=== PATIENT | female | born 1955 | race Caucasian/White ===

== ENCOUNTER 2019-04-28 13:55 | Observation (INO) ==
--- NOTE | 2019-04-28 14:16 | Emergency Department Note ---
ED Disposition Clinical Impression: Panniculitis, Morbid obesity Disposition: Admitted as Observation Condition on Discharge: Fair Referrals: Provider,Referral, [Primary Care Provider] - Time of Disposition: 17:26 - Critical Care Critical Care Time: No Attestation: On 04/28/19, the high probability of a clinically significant, sudden or life threatening deterioration of the following system(s) required my full and direct attention, intervention and personal management. The time I documented below is in addition to time spent performing reported procedures but includes the following listed in this critical care notation. Medical Decision Making - Medical Records Medical records reviewed: Yes: I reviewed the patient's medical records. - Mehdi Inquiry Pt receiving controlled substance: No Mehdi was queried for this patient: No Vital Signs: 04/28/19 14:13 04/28/19 14:46 04/28/19 16:14 Temperature 98.2 F Temperature Source Oral Pulse Rate [Left Radial] 71 70 71 Respiratory Rate 20 Blood Pressure [Right Arm] 154/86 H 94/36 L 148/65 H Blood Pressure Mean [Right Arm] 108 55 92 Blood Pressure Source [Right Arm] Automatic Cuff Automatic Cuff Blood Pressure Position [Right Arm] Sitting Sitting Supine 02 Sat by Pulse Oximetry 94 L 96 93 L Oxygen Delivery Method Room Air Room Air Room Air - Lab Data Lab results reviewed: Yes: I reviewed the patient's lab results. Lab Results 04/28/19 14:11: WBC 7.2, RBC 4.26, Hgb 9.0 L, Hct 32.4 L, MCV 76.2 L, MCH 21.2 L , MCHC 27.8 L, RDW 19.5 H, Plt Count 186, MPV 8.1, Neut % (Auto) 82.5 H, Lymph % (Auto) 9.8 L, [place] % (Auto) 6.2, Eos % (Auto) 1.2, Baso % (Auto) 0.3, Neut # (Auto) 6.0, Lymph # (Auto) 0.7, [place] # (Auto) 0.4, Eos # (Auto) 0.1, Baso # (Auto) 0.0 04/28/19 14:11: Sodium 144, Potassium 3.4 L, Chloride 107, Carbon Dioxide 27, Anion Gap 13.4, BUN 8, Creatinine 0.76, Estimated Creat Clear 44, Estimated GFR 76, Est GFR ( Amer) 92, Glucose 105, Calcium 8.5, Total Bilirubin 0.9, AST 19, ALT 13, Alkaline Phosphatase 73, Total Protein 7.1, Albumin 3.1 L, Gl obulin 4.0 H, Albumin/Globulin Ratio 0.8 L 04/28/19 14:11: Lactate 0.9 04/28/19 14:39: Urine Color Yellow, Urine Appearance Clear, Urine pH 6.0, Ur Specific [place] >= 1.030, Urine Protein Negative, Urine Glucose (UA) Negative, Urine Ketones 2+, Urine Blood Negative, Urine Nitrate Positive, Urine Bilirubin Negative, Urine Urobilinogen 1.0, Ur Leukocyte Esterase Negative, Urine WBC Occasional, Ur Squamous Epith Cells Occasional, Urine Bacteria 2+ Result diagrams: 04/28/19 14:11 04/28/19 14:11 Orders (Tests/Meds): ED MEDICATIONS Generic Name Dose Route Start Last Admin Trade Name Freq PRN Reason Stop Dose Admin Sodium Chloride 1,000 mls @ 500 mls/hr 04/28/19 14:30 04/28/19 16:08 Sod Chlor 0.9% 1000ml Bag IV 05/28/19 14:29 500 mls/hr .Q2H ENIO Administration Discontinued Medications Generic Name Dose Route Start Last Admin Trade Name Freq PRN Reason Stop Dose Admin Ketorolac Tromethamine 30 mg 04/28/19 15:02 04/28/19 15:06 Toradol 30mg/Ml Vial IV 04/28/19 15:03 30 mg ONCE ONE Administration Morphine Sulfate 4 mg 04/28/19 14:58 Morphine 4mg/Ml Syringe IV 04/28/19 14:59 ONCE ONE ORDERS Category Date Time Status Blood Culture Stat Micro 04/28/19 14:11 Received Urine Culture Stat Micro 04/28/19 14:39 Received - Physician Consults Physician Consulted: fran Time: 16:43 Reason -: Admission General Adult HPI - General Chief complaint: Weakness Stated complaint: Weakness Time Seen by Provider: 04/28/19 14:13 Mode of Arrival: EMS Source of Information: Patient Limitations: Physical Limitations (obesity) - History of Present Illness HPI narrative: brought in by caregivers for weakness, inability to ambulate, urinary incontinence with foul smelling urine. Has a nurse practicioner who visits her at her home. - Related Data Home Medications Medication Instructions Recorded Confirmed Gabapentin 800 mg PO DAILY 04/28/19 04/28/19 Omeprazole 20 mg PO DAILY 04/28/19 04/28/19 Oxycodone HCl [OxyIR 5mg tablet] 5 mg PO Q4H 04/28/19 04/28/19 Quetiapine Fumarate 50 mg PO DAILY 04/28/19 04/28/19 Ropinirole HCl 4 mg PO DAILY 04/28/19 04/28/19 Simvastatin 10 mg PO DAILY 04/28/19 04/28/19 Tizanidine HCl 2 mg PO DAILY 04/28/19 04/28/19 Venlafaxine HCl [Venlafaxine HCl 150 mg PO DAILY 04/28/19 04/28/19 ER] Allergies Allergy/AdvReac Type Severity Reaction Status Date / Time ASA (ASPIRIN) Allergy Unknown Uncoded 07/03/17 15:22 [facility] History - Hepatitis A Screen Attestation statement:: This patient has been screened for Hepatitis A risk factors. I have reviewed the patient's past medical history: Yes ROS Obtained: Yes All systems reviewed & no additional complaints - Constitutional Constitutional: Denies lethargy, Denies weakness - Cardiovascular Cardiovascular: Denies chest pain - Respiratory Respiratory: No chest congestion, No cough, No dyspnea, No dyspnea on exertion - Gastrointestinal Gastrointestingal: Reports: nausea. Denies: abdominal pain, diarrhea, vomiting - Genitourinary Female Genitourinary: Reports other (foul smelling urine) - Musculoskeletal Musculoskeletal: Reports limited range of motion, Reports muscle aches - Integumentary/Breasts Skin/Breast: Reports rash, Reports other (under breasts) - Neurologic Neurologic: Denies syncope, Denies vertigo, Reports weakness - Hematologic/Lymphatic Henatologic/Lymphatic: Denies easy bleeding, Denies easy bruising Physical Exam - General General appearance: alert, obese - Head Head exam: atraumatic - Eye Eye exam: Present: normal appearance, PERRL, EOMI - ENT ENT exam: Present: normal exam, normal oropharynx, mucous membranes moist, TM's normal bilaterally, normal external ear exam - Neck Neck exam: Present: normal inspection - Respiratory Respiratory exam: Present: normal lung sounds bilaterally. Absent: respiratory distress - Cardiovascular Cardiovascular exam: Present: regular rate, normal rhythm - Abdominal Exam Abdominal exam: Present: soft, hernia, other (.pannus is reddened in pelvic area with palpable induration on left. painful. cellulitic). Absent: distention, tenderness, guarding - Extremities Exam Extremities exam: Present: normal inspection, full ROM, normal capillary refill. Absent: calf tenderness - Back Exam Back exam: Present: normal inspection. Absent: tenderness - Neurological Exam Neurological exam: Present: alert, oriented X3 - Psychiatric Psychiatric exam: Present: normal affect, normal mood - Skin Skin exam: Present: warm, rash
[2019-04-28 14:37] LABS: Basophils % 0.3 % (0.1-2.0); Eosinophils # 0.1 K/mm3 (0.0-0.4); Eosinophils % 1.2 % (0.1-12.0); Hematocrit 32.4 % (37.0-47.0); Lymphocytes # 0.7 K/mm3 (0.7-4.5); Lymphocytes % 9.8 % (10-50); Mean Corpuscular HGB Conc 27.8 g/dL (31.8-35.4); Mean Corpuscular Volume 76.2 fl (81-99); Mean Platelet Volume 8.1 fl (7.4-10.4); Monocytes # 0.4 K/mm3 (0.1-1.0); Monocytes % 6.2 % (1.7-9.3); Neutrophils % 82.5 % (37.0-80.0); Platelet Count 186 K/mm3 (142-424); Red Blood Count 4.26 M/mm3 (4.20-5.40); Red Cell Distribution Width 19.5 % (11.5-17.5); White Blood Count 7.2 K/mm3 (4.8-10.8)
[2019-04-28 14:38] LABS: Albumin Level 3.1 gm/dL (3.4-5.0); Albumin/Globulin Ratio 0.8 (1.1-1.8); Anion Gap 13.4 mEq/L (5-15); Bilirubin,Total 0.9 mg/dL (0.2-1.0); Calcium 8.5 mg/dL (8.5-10.1); Total Protein,Serum 7.1 gm/dL (6.4-8.2)
[2019-04-28 14:46] LABS: Microscopic, Urine URINE MICROSCOPIC (MICROSCOPIC)
[2019-04-28 14:49] LABS: Appearance,Urine CLEAR (Clear); Blood, Urine Negative (Negative); Color,Urine YELLOW (Yellow); Glucose,Urine (UA) Negative (Negative); Ketones,Urine 2+ (Negative); Leukocyte Esterase,Urine Negative (Negative); Protein,Urine Negative (Negative); Specific Gravity, Urine >= 1.030 (1.005-1.030)
[2019-04-28 14:57] LABS: Bilirubin,Urine Negative (Negative)
[2019-04-28 15:01] LABS: Bacteria,Urine 2+ /lpf; Squamous Epithelial Cell,Urine Occasional #/hpf (0-5); WBC,Urine Occasional #/hpf (0-3)
[2019-04-29 07:25] LABS: Basophils % 0.2 % (0.1-2.0); Eosinophils # 0.1 K/mm3 (0.0-0.4); Eosinophils % 1.6 % (0.1-12.0); Hematocrit 32.1 % (37.0-47.0); Hemoglobin 9.1 g/dL (12.2-16.2); Lymphocytes # 0.3 K/mm3 (0.7-4.5); Lymphocytes % 2.9 % (10-50); Mean Corpuscular HGB Conc 28.2 g/dL (31.8-35.4); Mean Corpuscular Volume 77.9 fl (81-99); Monocytes # 0.4 K/mm3 (0.1-1.0); Monocytes % 4.4 % (1.7-9.3); Neutrophils # 8.1 K/mm3 (1.8-7.8); Neutrophils % 90.9 % (37.0-80.0); Platelet Count 161 K/mm3 (142-424); Red Blood Count 4.12 M/mm3 (4.20-5.40); Red Cell Distribution Width 19.3 % (11.5-17.5); White Blood Count 8.9 K/mm3 (4.8-10.8)
[2019-04-29 07:52] LABS: Anion Gap 11.6 mEq/L (5-15); Calcium 8.1 mg/dL (8.5-10.1)
--- NOTE | 2019-04-29 08:12 | Pharmacy Consult Notes ---
- Pharmacy Consult Date: 04/29/19 Time: 08:10 Referring provider: DR. BRAR Reason for Consult:: VANCOMYCIN DOSING Allergies and ADEs:: Allergies Allergy/AdvReac Type Severity Reaction Status Date / Time aspirin Allergy Severe Anaphylaxis Verified 04/29/19 07:58 Sulfa (Sulfonamide AdvReac Nausea Verified 04/28/19 23:14 Antibiotics) Home Medications:: Home Medications Medication Instructions Recorded Confirmed Type Gabapentin 800 mg PO DAILY 04/28/19 04/28/19 History Omeprazole 20 mg PO DAILY 04/28/19 04/28/19 History Oxycodone HCl [OxyIR 5mg tablet] 5 mg PO Q4H 04/28/19 04/28/19 History Quetiapine Fumarate 50 mg PO DAILY 04/28/19 04/28/19 History Ropinirole HCl 4 mg PO DAILY 04/28/19 04/28/19 History Simvastatin 10 mg PO DAILY 04/28/19 04/28/19 History Tizanidine HCl 2 mg PO DAILY 04/28/19 04/28/19 History Venlafaxine HCl [Venlafaxine HCl 150 mg PO DAILY 04/28/19 04/28/19 History ER] Height: 1.57 m Weight: 154.5 kg Laboratory Results:: Laboratory Results - last 24 hr 04/28/19 14:11: WBC 7.2, RBC 4.26, Hgb 9.0 L, Hct 32.4 L, MCV 76.2 L, MCH 21.2 L , MCHC 27.8 L, RDW 19.5 H, Plt Count 186, MPV 8.1, Neut % (Auto) 82.5 H, Lymph % (Auto) 9.8 L, [place] % (Auto) 6.2, Eos % (Auto) 1.2, Baso % (Auto) 0.3, Neut # (Auto) 6.0, Lymph # (Auto) 0.7, [place] # (Auto) 0.4, Eos # (Auto) 0.1, Baso # (Auto) 0.0 04/28/19 14:11: Sodium 144, Potassium 3.4 L, Chloride 107, Carbon Dioxide 27, Anion Gap 13.4, BUN 8, Creatinine 0.76, Estimated Creat Clear 44, Estimated GFR 76, Est GFR ( Amer) 92, Glucose 105, Calcium 8.5, Total Bilirubin 0.9, AST 19, ALT 13, Alkaline Phosphatase 73, Total Protein 7.1, Albumin 3.1 L, Globulin 4.0 H, Albumin/Globulin Ratio 0.8 L 04/28/19 14:11: Lactate 0.9 04/28/19 14:39: Urine Color Yellow, Urine Appearance Clear, Urine pH 6.0, Ur Specific [place] >= 1.030, Urine Protein Negative, Urine Glucose (UA) Negative, Urine Ketones 2+, Urine Blood Negative, Urine Nitrate Positive, Urine Bilirubin Negative, Urine Urobilinogen 1.0, Ur Leukocyte Esterase Negative, Urine WBC Occasional, Ur Squamous Epith Cells Occasional, Urine Bacteria 2+ 04/29/19 07:12: WBC 8.9, RBC 4.12 L, Hgb 9.1 L, Hct 32.1 L, MCV 77.9 L, MCH 22.0 L, MCHC 28.2 L, RDW 19.3 H, Plt Count 161, MPV 9.0, Neut % (Auto) 90.9 H, Lymph % (Auto) 2.9 L, [place] % (Auto) 4.4, Eos % (Auto) 1.6, Baso % (Auto) 0.2, Neut # (Auto) 8.1 H, Lymph # (Auto) 0.3 L, [place] # (Auto) 0.4, Eos # (Auto) 0.1, Baso # (Auto) 0.0 04/29/19 07:12: Sodium 144, Potassium 3.6, Chloride 109 H, Carbon Dioxide 27, Anion Gap 11.6, BUN 9, Creatinine 0.75, Estimated Creat Clear 44, Estimated GFR 78, Est GFR ( Amer) 94, Glucose 101, Calcium 8.1 L Medical History: Denies:: Diabetes Mellitus Type 1, Diabetes Mellitus Type 2 Assessment and Plan - Assessment and plan all Dx Assessment and Plan for all problems:: BASED ON PATIENT FACTORS, RECOMMEND VANCOMYCIN 2500 MG IV Q18H. WILL OBTAIN VANCOMYCIN TROUGH LEVEL PRIOR TO 3RD DOSE. PHARMACY WILL FOLLOW DAILY AND ADJUST APPROPRIATE.
--- NOTE | 2019-04-29 09:03 | History & Physical Report ---
*Admission Date: 04/28/19 *Chief complaint: fatigue, weakness *History of present illness: Ms. Sanchez is a morbidly obese 63-year-old female with history of failed gastric bypass surgery, knee replacement a year ago, pickwickian syndrome on BiPAP and oxygen at night, and worsening debility over the past year. She presented to the ER yesterday due to concern for worsening fatigue and inability to perform ADLs it is progressed for the past month. She denied any focal pain but complained of just weakness and fatigue. Falling asleep during the day which is abnormal for her even with her use of BiPAP. Work-up in the ER consisted of labs and abdominal CT. She was found to have anemia, suspected to be chronic, and significant haziness/stranding of fat within her pannus concerning for inflammation/infection. Additionally her urine was concerning for a UTI. She was admitted to medicine for further management of her acute and suspected chronic conditions. This morning she states she has had bad experiences at previous hospitals and requested to come to [facility]. She has been living at home with a home health aide who comes in daily to assist her with housework and care. This is been going on for over a year since having her knee replaced. She states she is normally able to ambulate around her home and do things such as laundry, dishes, cleaning but has not been able to do any of this for the past month and it progressed to the point that she was unable to even walk to the bathroom. She denies any fevers, chest pain, worsening shortness of breath at home. Does state however she is been falling asleep more easily and has had a change in her urine. Additionally reports that approximately a month ago she was diagnosed with a pneumonia and treated in the outpatient setting. This correlates to the onset of her worsening fatigue and debility. Eating breakfast on interview and appears comfortable. [facility] History I have reviewed the patient's past medical history: Yes Medical History: Denies:: Diabetes Mellitus Type 1, Diabetes Mellitus Type 2 *Have you ever received a pneumonia vaccine?: Yes *Have you received a flu vaccine this season?: No Other Medical History: Reports: Anemia Comment:: Sleep apnea Laterality Cases: Right: Total Knee Replacement (1 yr ago) Other Surgeries: Yes: Bariatric Surgery - *Social History Smoking Status: Never smoker Alcohol Intake: never Alcohol Intake Frequency:: other Substance Use Type: denies use *Occupational Status:: disabled *Travel in the last 8 weeks: None Family Hx:: Hyperlipidemia, Hypertension Review of Systems - Review of Systems Review of systems:: pertinent systems reviewed and negative unless documented below - *Neurologic Reports weakness, Denies fainting, Denies dizziness Meds Home Medications Medication Instructions Recorded Confirmed Type Gabapentin 800 mg PO TID 04/28/19 04/29/19 History Omeprazole 20 mg PO BID 04/28/19 04/29/19 History Oxycodone HCl [OxyIR 5mg tablet] 5 mg PO QID 04/28/19 04/29/19 History Quetiapine Fumarate 50 - 100 mg PO BID 04/28/19 04/29/19 History Ropinirole HCl 4 - 8 mg PO TID 04/28/19 04/29/19 History Simvastatin 10 mg PO HS 04/28/19 04/29/19 History Tizanidine HCl 2 mg PO HS 04/28/19 04/29/19 History Venlafaxine HCl [Venlafaxine HCl 150 mg PO BID 04/28/19 04/29/19 History ER] Allopurinol [Allopurinol 100mg 100 mg PO DAILY 04/29/19 04/29/19 History tablet] Atenolol [Atenolol 25mg Tab] 25 mg PO DAILY 04/29/19 04/29/19 History Bumetanide 1 mg PO DAILY 04/29/19 04/29/19 History Calcium Carbonate [Calcium] 600 mg PO DAILY 04/29/19 04/29/19 History Ergocalciferol (Vitamin D2) 50,000 unit PO WEEKLY 04/29/19 04/29/19 History [Vitamin D2] Potassium Chloride [Klor-Con M10] 10 meq PO TID 04/29/19 04/29/19 History Allergies Allergy/AdvReac Type Severity Reaction Status Date / Time aspirin Allergy Severe Anaphylaxis Verified 04/29/19 07:58 Sulfa (Sulfonamide AdvReac Nausea Verified 04/28/19 23:14 Antibiotics) Exam Vital signs and Labs for Last 24 Hours: Temp Pulse Resp BP Pulse Ox 98.8 F 78 18 144/61 H 98 04/29/19 04:00 04/29/19 04:00 04/29/19 04:00 04/29/19 04:00 04/29/19 04:00 Laboratory Results - last 24 hr 04/28/19 14:11: WBC 7.2, RBC 4.26, Hgb 9.0 L, Hct 32.4 L, MCV 76.2 L, MCH 21.2 L , MCHC 27.8 L, RDW 19.5 H, Plt Count 186, MPV 8.1, Neut % (Auto) 82.5 H, Lymph % (Auto) 9.8 L, [place] % (Auto) 6.2, Eos % (Auto) 1.2, Baso % (Auto) 0.3, Neut # (Auto) 6.0, Lymph # (Auto) 0.7, [place] # (Auto) 0.4, Eos # (Auto) 0.1, Baso # (Auto) 0.0 04/28/19 14:11: Sodium 144, Potassium 3.4 L, Chloride 107, Carbon Dioxide 27, Anion Gap 13.4, BUN 8, Creatinine 0.76, Estimated Creat Clear 44, Estimated GFR 76, Est GFR ( Amer) 92, Glucose 105, Calcium 8.5, Total Bilirubin 0.9, AST 19, ALT 13, Alkaline Phosphatase 73, Total Protein 7.1, Albumin 3.1 L, Globulin 4.0 H, Albumin/Globulin Ratio 0.8 L 04/28/19 14:11: Lactate 0.9 04/28/19 14:39: Urine Color Yellow, Urine Appearance Clear, Urine pH 6.0, Ur Specific [place] >= 1.030, Urine Protein Negative, Urine Glucose (UA) Negative, Urine Ketones 2+, Urine Blood Negative, Urine Nitrate Positive, Urine Bilirubin Negative, Urine Urobilinogen 1.0, Ur Leukocyte Esterase Negative, Urine WBC Occasional, Ur Squamous Epith Cells Occasional, Urine Bacteria 2+ 04/29/19 07:12: WBC 8.9, RBC 4.12 L, Hgb 9.1 L, Hct 32.1 L, MCV 77.9 L, MCH 22.0 L, MCHC 28.2 L, RDW 19.3 H, Plt Count 161, MPV 9.0, Neut % (Auto) 90.9 H, Lymph % (Auto) 2.9 L, [place] % (Auto) 4.4, Eos % (Auto) 1.6, Baso % (Auto) 0.2, Neut # (Auto) 8.1 H, Lymph # (Auto) 0.3 L, [place] # (Auto) 0.4, Eos # (Auto) 0.1, Baso # (Auto) 0.0 04/29/19 07:12: Sodium 144, Potassium 3.6, Chloride 109 H, Carbon Dioxide 27, Anion Gap 11.6, BUN 9, Creatinine 0.75, Estimated Creat Clear 44, Estimated GFR 78, Est GFR ( Amer) 94, Glucose 101, Calcium 8.1 L I & O for Last 24 hours: Intake & Output 04/26/19 04/27/19 04/28/19 04/29/19 23:59 23:59 23:59 23:59 Intake Total 1475 / 1475 Output Total 350 / 350 Balance 1125 / 1125 Weight 153.1 kg 154.5 kg Microbiology Reports for the Last 24 Hours: Microbiology 04/28/19 14:39 Urine,Catheterized Urine Culture - Preliminary - Constitutional mild distress, morbidly obese, chronically ill appearing - *Routine HEENT Exam Head: Present: normocephalic Eye: Present: EOMI, PERRL ENT: Present: mucous membranes moist - *Routine Neck Exam Present: supple. Absent: lymphadenopathy - *Routine Respiratory Exam Present: diminished air movement (worse at bases). Absent: wheezes - *Routine Cardiovascular Exam Present: RRR - *Routine Abdominal Exam Present: soft, normoactive bowel sounds. Absent: tenderness Comments: Extensive erythema within fold of pannus, additionally noted erythema under breasts bilaterally with satellite lesions. Yeasty smell within pannus fold, ointment on rash on abdomen - *Routine Extremities Exam Present: edema. Absent: cyanosis, clubbing Comments: Chronic venous stasis dermatitis bilaterally, dense edema that is nonpitting on bilateral lower legs with tenderness to palpation no warmth or bulla - *Routine Skin Exam Present: intact, warm, rash Comments: erythematous rash in skin folds with satellite lesions, no fluctuance or abscesses, chronic stasis dermatitis in BLE with dense edema to knees. 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 Absent: altered mental status Assessment and Plan (1) Chronic iron deficiency anemia Current visit: Yes Status: Chronic Category: Medical Code(s): D50.9 - Iron deficiency anemia, unspecified Suspect chronic due to microcytosis. Patient does state she has had some positive guaiac studies done but has not had a colonoscopy in many years. Denies any kim bleeding. Would benefit from work-up in the outpatient setting consisting of colonoscopy to look for underlying etiology. Suspect her worsening anemia underscore's her debility, fatigue, oxygen requirement. (2) Candidal dermatitis Current visit: Yes Status: Acute Category: Medical Code(s): B37.2 - Candidiasis of skin and nail Erythema of abdominal wall and folds under her breast and pannus concerning for yeast infection with possible superimposed bacterial infection. Initiated on Diflucan. Will complete 14-day course to help clear up lesions. Additionally will start nystatin cream topically. (3) Pickwickian syndrome Current visit: Yes Status: Acute Category: Medical Code(s): E66.2 - Morbid (severe) obesity with alveolar hypoventilation resume home BiPAP when brought to hospital by caregiver. O2 PRN for goal >92% awake and >88% asleep. (4) Debility Current visit: Yes Status: Acute Category: Medical Code(s): R53.81 - Other malaise (5) Morbid obesity Current visit: Yes Status: Chronic Category: Medical Code(s): E66.01 - Morbid (severe) obesity due to excess calories complicates all aspects of care (6) Panniculitis Current visit: Yes Status: Acute Category: Medical Code(s): M79.3 - Panniculitis, unspecified suspected due to stranding on CT, continue Abx and Antifungal. monitor for improvement. no surgical consult required at this time.
--- NOTE | 2019-04-29 09:42 | Pharmacy Consult Notes ---
[facility] Pharmacy VTE Monitoring - Patient Demographics Admission date: 04/28/19 Report Date: 04/29/19 Time: 09:42 Allergies/Adverse Reactions: Patient Allergies aspirin Allergy (Severe, Verified 04/29/19 07:58) Anaphylaxis Sulfa (Sulfonamide Antibiotics) Adverse Reaction (Verified 04/28/19 23:14) Nausea Height: 1.57 m Weight: 154.5 kg Patient Problems: Current Active Problems Panniculitis (Acute) Morbid obesity (Acute) - VTE Risk Labs: VTE Related Lab Results Hgb 9.1 g/dL (12.2-16.2) L 04/29/19 07:12 Hct 32.1 % (37.0-47.0) L 04/29/19 07:12 Plt Count 161 K/mm3 (142-424) 04/29/19 07:12 BUN 9 mg/dL (7-18) 04/29/19 07:12 Creatinine 0.75 mg/dL (0.55-1.02) 04/29/19 07:12 Estimated Creat Clear 44 mL/min (50-200) 04/29/19 07:12 Was VTE Risk Assessment Performed: Yes VTE Score: 10 VTE Risk Level: Moderate Risk - Prophylaxis VTE Prophylaxis Ordered?: Yes Types of VTE Prophylaxis: TEDS Knee High Location of Applied Device: Bilateral Lower Extremeties - VTE Diagnosis Confirmed Treatment or plan recommended: Continue Current Treatment
[2019-04-29 13:05] LABS: Hypochromasia 2+; Lymphocytes % 2 % (10-50); Monocytes % 1 % (2-9); Neutrophils % 97 % (42-76); Total Cells Counted 100
[2019-04-30 07:41] LABS: Basophils % 0.2 % (0.1-2.0); Eosinophils # 0.2 K/mm3 (0.0-0.4); Eosinophils % 1.7 % (0.1-12.0); Hematocrit 34.1 % (37.0-47.0); Hemoglobin 9.5 g/dL (12.2-16.2); Lymphocytes # 0.5 K/mm3 (0.7-4.5); Lymphocytes % 4.1 % (10-50); Mean Corpuscular HGB Conc 27.9 g/dL (31.8-35.4); Mean Corpuscular Volume 76.4 fl (81-99); Monocytes # 0.6 K/mm3 (0.1-1.0); Monocytes % 5.3 % (1.7-9.3); Neutrophils # 9.8 K/mm3 (1.8-7.8); Neutrophils % 88.8 % (37.0-80.0); Platelet Count 171 K/mm3 (142-424); Red Blood Count 4.46 M/mm3 (4.20-5.40); Red Cell Distribution Width 19.2 % (11.5-17.5); White Blood Count 11.1 K/mm3 (4.8-10.8)
[2019-04-30 07:49] LABS: Anion Gap 10.2 mEq/L (5-15); Calcium 8.1 mg/dL (8.5-10.1)
--- NOTE | 2019-04-30 11:38 | Progress Note ---
Internal Medicine - PN: Subj *Date: 04/30/19 *Time: 11:35 Interval history: Ms. Sanchez did well overnight. She wore her BiPAP with improvement in her sleep per her report. Continues to be very weak and unable to get up out of bed on her own. Physical therapy worked with her yesterday and is concerned that she needs 1-2 person assist based on her current debility. Remains afebrile. Hemodynamically stable. Tolerating good p.o. intake. Tolerating oral antifungal and antibiotic therapy. Patient continues to complain of back pain and sensitive skin in the regions of her intertrigo. Denies nausea, vomiting, diarrhea. Is requesting to keep her Shine as it makes it easier for her to void. Had extensive discussion this morning about the risk for UTI and complicating her care with the use of a Shine. Exam Vital signs and Labs for Last 24 Hours: Temp Pulse Resp BP Pulse Ox 98.6 F 92 H 18 167/79 H 93 L 04/30/19 08:00 04/30/19 08:00 04/30/19 08:00 04/30/19 08:00 04/30/19 08:00 Laboratory Results - last 24 hr 04/28/19 14:39: Urine Color Yellow, Urine Appearance Clear, Urine pH 6.0, Ur Specific [place] >= 1.030, Urine Protein Negative, Urine Glucose (UA) Negative, Urine Ketones 2+, Urine Blood Negative, Urine Nitrate Positive, Urine Bilirubin Negative, Urine Urobilinogen 1.0, Ur Leukocyte Esterase Negative, Urine WBC Occasional, Ur Squamous Epith Cells Occasional, Urine Bacteria 2+ 04/29/19 07:12: Total Counted 100, Neutrophils % (Manual) 97 H, Lymphocytes % (Manual) 2 L, Monocytes % (Manual) 1 L, Platelet Estimate Normal, Hypochromasia 2+, Microcytosis 2+ 04/30/19 07:20: WBC 11.1 H, RBC 4.46, Hgb 9.5 L, Hct 34.1 L, MCV 76.4 L, MCH 21.3 L, MCHC 27.9 L, RDW 19.2 H, Plt Count 171, MPV 8.0, Neut % (Auto) 88.8 H, Lymph % (Auto) 4.1 L, [place] % (Auto) 5.3, Eos % (Auto) 1.7, Baso % (Auto) 0.2, Neut # (Auto) 9.8 H, Lymph # (Auto) 0.5 L, [place] # (Auto) 0.6, Eos # (Auto) 0.2, Baso # (Auto) 0.0 04/30/19 07:20: Sodium 144, Potassium 3.2 L, Chloride 109 H, Carbon Dioxide 28, Anion Gap 10.2, BUN 8, Creatinine 0.77, Estimated Creat Clear 44, Estimated GFR 75, Est GFR ( Amer) 91, Glucose 117 H, Calcium 8.1 L I & O for Last 24 hours: Intake & Output 04/27/19 04/28/19 04/29/19 04/30/19 23:59 23:59 23:59 23:59 Intake Total 3323 / 3647 1473 / 1473 Output Total 2450 / 2450 1800 / 1800 Balance 873 / 1197 -327 / -327 Weight 153.1 kg 154.5 kg 154.5 kg Microbiology Reports for the Last 24 Hours: Microbiology 04/28/19 14:39 Urine,Catheterized Urine Culture - Preliminary Gram Negative Rods Gram Negative Rods#2 Narrative: - Constitutional No acute distress, morbidly obese, chronically ill appearing - *Routine HEENT Exam Head: Present: normocephalic Eye: Present: EOMI, PERRL ENT: Present: mucous membranes moist - *Routine Neck Exam Present: supple. Absent: lymphadenopathy - *Routine Respiratory Exam Present: diminished air movement (worse at bases). Absent: wheezes, crackles - *Routine Cardiovascular Exam Present: RRR - *Routine Abdominal Exam Present: soft, normoactive bowel sounds. Absent: tenderness Comments: Extensive erythema within fold of pannus, additionally noted erythema under breasts bilaterally with satellite lesions. warm, though interval improvement, ointment on rash on abdomen - *Routine Extremities Exam Present: edema. Absent: cyanosis, clubbing Comments: Chronic venous stasis dermatitis bilaterally, dense edema that is nonpitting on bilateral lower legs with tenderness to palpation no warmth or bulla - *Routine Skin Exam Present: intact, warm, rash Comments: erythematous rash in skin folds with satellite lesions, no fluctuance or abscesses, chronic stasis dermatitis in BLE with dense edema to knees. 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 Absent: altered mental status Assessment and Plan (1) Chronic iron deficiency anemia Current visit: Yes Status: Chronic Category: Medical Code(s): D50.9 - Iron deficiency anemia, unspecified (2) Candidal dermatitis Current visit: Yes Status: Acute Category: Medical Code(s): B37.2 - Candidiasis of skin and nail (3) Pickwickian syndrome Current visit: Yes Status: Acute Category: Medical Code(s): E66.2 - Morbid (severe) obesity with alveolar hypoventilation (4) Debility Current visit: Yes Status: Acute Category: Medical Code(s): R53.81 - Other malaise (5) Morbid obesity Current visit: Yes Status: Chronic Category: Medical Code(s): E66.01 - Morbid (severe) obesity due to excess calories (6) Panniculitis Current visit: Yes Status: Acute Category: Medical Code(s): M79.3 - Panniculitis, unspecified (7) Candidal intertrigo Current visit: Yes Status: Acute Category: Medical Code(s): B37.2 - Candidiasis of skin and nail - Assessment and plan all Dx Assessment and Plan for all problems:: 63-year-old female with severe debility, morbid obesity, candidal intertrigo. Clinically she is stable from yesterday. We will continue to have physical therapy see her while she is with us. At this time the patient is stable from an acute standpoint and on oral and topical therapy for her intertrigo. Do not feel patient is safe to go back home even in the setting of having a nurse aide for several hours a day 5 days a week. She does not currently have the strength to get herself up out of bed or chair and ambulate independently. Therapy is recommended placement for rehab, agree with this assessment as well as for wound care in my opinion. Will look into placement options for Ms. Sanchez. Continue inpatient therapy and current treatment course pending placement options. Stable for discharge once placement is found
[2019-04-30 12:03] LABS: Eosinophils % 2 % (0-3); Lymphocytes % 2 % (10-50); Monocytes % 6 % (2-9); Neutrophils % 90 % (42-76); Total Cells Counted 100
[2019-04-30 12:08] LABS: Anisocytosis 1+; Tear Drop Cells 1+
[2019-04-30 12:09] LABS: Hypochromasia 2+
[2019-05-01 07:15] LABS: Basophils % 0.3 % (0.1-2.0); Eosinophils # 0.2 K/mm3 (0.0-0.4); Eosinophils % 1.8 % (0.1-12.0); Hematocrit 28.6 % (37.0-47.0); Lymphocytes # 0.8 K/mm3 (0.7-4.5); Lymphocytes % 8.2 % (10-50); Mean Corpuscular HGB Conc 28.5 g/dL (31.8-35.4); Mean Corpuscular Volume 76.3 fl (81-99); Mean Platelet Volume 8.9 fl (7.4-10.4); Monocytes # 0.6 K/mm3 (0.1-1.0); Monocytes % 5.6 % (1.7-9.3); Neutrophils # 8.6 K/mm3 (1.8-7.8); Neutrophils % 84.2 % (37.0-80.0); Platelet Count 158 K/mm3 (142-424); Red Blood Count 3.75 M/mm3 (4.20-5.40); Red Cell Distribution Width 19.6 % (11.5-17.5); White Blood Count 10.3 K/mm3 (4.8-10.8)
[2019-05-01 07:23] LABS: Anion Gap 7.4 mEq/L (5-15); Calcium 7.6 mg/dL (8.5-10.1)
[2019-05-01 07:52] LABS: Hemoglobin 7.9 g/dL (12.2-16.2)
[2019-05-01 08:45] LABS: Hematocrit 30.1 % (37.0-47.0); Hemoglobin 8.5 g/dL (12.2-16.2)
--- NOTE | 2019-05-01 08:51 | Progress Note ---
Internal Medicine - PN: Subj *Date: 05/01/19 *Time: 08:47 Interval history: Ms. Sanchez did well overnight with no acute events. Tolerated her BiPAP with good sleep. States she is breathing a little bit more comfortably today with holding her IV fluids yesterday. Urine micro this morning noted to have 2 different E. coli species. Changing antibiotics accordingly. Will discontinue Shine this morning though patient is not excited about this. Discussed that nursing will help her get onto bedpan or to bedside commode. Worked with physical therapy yesterday but needs significant help getting up and out of bed. Still feels generally weak. Afebrile, hemodynamically stable. No emesis, chest pain, abdominal pain. Exam Vital signs and Labs for Last 24 Hours: Temp Pulse Resp BP Pulse Ox 97.8 F 78 17 147/74 H 94 L 05/01/19 08:00 05/01/19 08:00 05/01/19 08:00 05/01/19 08:00 05/01/19 08:00 Laboratory Results - last 24 hr 04/30/19 07:20: Total Counted 100, Neutrophils % (Manual) 90 H, Lymphocytes % (Manual) 2 L, Monocytes % (Manual) 6, Eosinophils % (Manual) 2, Platelet Estimate Normal, Hypochromasia 2+, Anisocytosis 1+, Microcytosis 2+, Tear Drop Cells 1+ 05/01/19 07:03: WBC 10.3, RBC 3.75 L, Hgb 7.9 L*, Hct 28.6 L, MCV 76.3 L, MCH 21.7 L, MCHC 28.5 L, RDW 19.6 H, Plt Count 158, MPV 8.9, Neut % (Auto) 84.2 H, Lymph % (Auto) 8.2 L, [place] % (Auto) 5.6, Eos % (Auto) 1.8, Baso % (Auto) 0.3, Neut # (Auto) 8.6 H, Lymph # (Auto) 0.8, [place] # (Auto) 0.6, Eos # (Auto) 0.2, Baso # (Auto) 0.0 05/01/19 07:03: Sodium 142, Potassium 3.4 L, Chloride 108 H, Carbon Dioxide 30, Anion Gap 7.4, BUN 9, Creatinine 0.69, Estimated Creat Clear 42, Estimated GFR 85, Est GFR ( Amer) 103, Glucose 128 H, Calcium 7.6 L I & O for Last 24 hours: Intake & Output 04/28/19 04/29/19 04/30/19 05/01/19 23:59 23:59 23:59 23:59 Intake Total 3323 / 3647 1952 / 1952 360 / 360 Output Total 2450 / 2450 4900 / 5350 450 / 450 Balance 873 / 1197 -2947 / -3397 -90 / -90 Weight 153.1 kg 154.5 kg 154.5 kg 156.3 kg Microbiology Reports for the Last 24 Hours: Microbiology 04/28/19 14:11 Blood Blood Culture - Preliminary NO GROWTH AFTER 48 HOURS 04/28/19 14:11 Blood Blood Culture - Preliminary NO GROWTH AFTER 48 HOURS 04/28/19 14:39 Urine,Catheterized Urine Culture - Preliminary Gram Negative Rods Gram Negative Rods#2 Narrative: - Constitutional No acute distress, morbidly obese, chronically ill appearing - *Routine HEENT Exam Head: Present: normocephalic Eye: Present: EOMI, PERRL ENT: Present: mucous membranes moist - *Routine Neck Exam Present: supple. Absent: lymphadenopathy - *Routine Respiratory Exam Present: diminished air movement (worse at bases). Absent: wheezes, crackles - *Routine Cardiovascular Exam Present: RRR - *Routine Abdominal Exam Present: soft, normoactive bowel sounds. Absent: tenderness Comments: Significant improvement in erythema within fold of pannus, additionally noted erythema under breasts bilaterally with satellite lesions. Decreased warm. ointment on rash on abdomen - *Routine Extremities Exam Present: edema. Absent: cyanosis, clubbing Comments: Chronic venous stasis dermatitis bilaterally, dense edema that is nonpitting on bilateral lower legs with tenderness to palpation no warmth or bulla - *Routine Skin Exam Present: intact, warm, rash Comments: erythematous rash in skin folds with satellite lesions, no fluctuance or abscesses, chronic stasis dermatitis in BLE with dense edema to knees. 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 Assessment and Plan (1) Chronic iron deficiency anemia Current visit: Yes Status: Chronic Category: Medical Code(s): D50.9 - Iron deficiency anemia, unspecified (2) Candidal dermatitis Current visit: Yes Status: Acute Category: Medical Code(s): B37.2 - Candidiasis of skin and nail (3) Pickwickian syndrome Current visit: Yes Status: Acute Category: Medical Code(s): E66.2 - Morbid (severe) obesity with alveolar hypoventilation (4) Debility Current visit: Yes Status: Acute Category: Medical Code(s): R53.81 - Other malaise (5) Morbid obesity Current visit: Yes Status: Chronic Category: Medical Code(s): E66.01 - Morbid (severe) obesity due to excess calories (6) Panniculitis Current visit: Yes Status: Acute Category: Medical Code(s): M79.3 - Panniculitis, unspecified (7) Candidal intertrigo Current visit: Yes Status: Acute Category: Medical Code(s): B37.2 - Candidiasis of skin and nail (8) E. coli UTI Current visit: Yes Status: Acute Category: Medical Code(s): N39.0 - Ur inary tract infection, site not specified; B96.20 - Unspecified Escherichia coli [E. coli] as the cause of diseases classified elsewhere Urine collected on admission when Shine was placed. UA was unremarkable however urine cultures as populated to E. coli species. Change antibiotics to ceftriaxone. Discontinue Keflex. Will narrow antibiotics pending sensitivities. -DC Shine today - Assessment and plan all Dx Assessment and Plan for all problems:: 63-year-old female with morbid obesity, debility, UTI, intertrigo. Overall patient is improving. Still weak and needs significant nursing care. Have strong concern patient does not have the ability to care for herself at home in her current setting and would benefit significantly from nursing home for rehab to improve functionality with ADLs. Continues to require inpatient management. Case management consulted, appreciate their help. Currently patient is being referred to nursing facilities in the surrounding area to assess placement potential.
[2019-05-02 07:23] LABS: Basophils % 0.4 % (0.1-2.0); Eosinophils # 0.2 K/mm3 (0.0-0.4); Eosinophils % 2.7 % (0.1-12.0); Hematocrit 29.6 % (37.0-47.0); Hemoglobin 8.4 g/dL (12.2-16.2); Lymphocytes # 0.9 K/mm3 (0.7-4.5); Lymphocytes % 12.3 % (10-50); Mean Corpuscular HGB Conc 28.3 g/dL (31.8-35.4); Monocytes # 0.3 K/mm3 (0.1-1.0); Monocytes % 4.8 % (1.7-9.3); Neutrophils # 5.7 K/mm3 (1.8-7.8); Neutrophils % 79.8 % (37.0-80.0); Platelet Count 152 K/mm3 (142-424); Red Blood Count 3.84 M/mm3 (4.20-5.40); Red Cell Distribution Width 18.4 % (11.5-17.5); White Blood Count 7.1 K/mm3 (4.8-10.8)
--- NOTE | 2019-05-02 15:02 | Progress Note ---
Internal Medicine - PN: Subj *Date: 05/02/19 *Time: 08:45 Interval history: Ms. Sanchez did well overnight. Were her CPAP without difficulty. Tolerating good p.o. intake. Urine cultures returned with sensitivities, Klebsiella sensitive to multiple p.o. agents including Levaquin. Able to sit up on the edge of the bed herself yesterday afternoon. Still having significant difficulty standing and ambulating independently. Further questioning today elicits that she has a walker at home to help get around, a power chair, and a power wheelchair in her home setting. She is still however by herself the majority of the day and mostly on weekends. Afebrile, denies chest pain, shortness of b reath, nausea, vomiting, diarrhea. Exam Vital signs and Labs for Last 24 Hours: Temp Pulse Resp BP Pulse Ox 98.7 F 90 18 138/58 L 93 L 05/02/19 08:00 05/02/19 08:00 05/02/19 08:00 05/02/19 08:00 05/02/19 08:00 Laboratory Results - last 24 hr 05/02/19 06:50: WBC 7.1 D, RBC 3.84 L, Hgb 8.4 L, Hct 29.6 L, MCV 77.0 L, MCH 21.8 L, MCHC 28.3 L, RDW 18.4 H, Plt Count 152, MPV 8.0, Neut % (Auto) 79.8, Lymph % (Auto) 12.3, [place] % (Auto) 4.8, Eos % (Auto) 2.7, Baso % (Auto) 0.4, Neut # (Auto) 5.7, Lymph # (Auto) 0.9, [place] # (Auto) 0.3, Eos # (Auto) 0.2, Baso # (Auto) 0.0 05/02/19 06:50: Sodium 143, Potassium 4.0, Chloride 107, Carbon Dioxide 30, Anion Gap 10.0, BUN 10, Creatinine 0.67, Estimated Creat Clear 42, Estimated GFR 88, Est GFR ( Amer) 107, Glucose 112 H, Calcium 8.0 L I & O for Last 24 hours: Intake & Output 04/29/19 04/30/19 05/01/19 05/02/19 23:59 23:59 23:59 23:59 Intake Total 3323 / 3647 1952 / 1952 720 / 720 360 / 360 Output Total 2450 / 2450 4900 / 5350 450 / 600 150 / 150 Balance 873 / 1197 -2947 / -3397 270 / 120 210 / 210 Weight 154.5 kg 154.5 kg 156.3 kg 156.3 kg Narrative: - Constitutional No acute distress, morbidly obese, chronically ill appearing - *Routine HEENT Exam Head: Present: normocephalic Eye: Present: EOMI, PERRL ENT: Present: mucous membranes moist - *Routine Neck Exam Present: supple. Absent: lymphadenopathy - *Routine Respiratory Exam Present: diminished air movement (worse at bases). Absent: wheezes, crackles - *Routine Cardiovascular Exam Present: RRR - *Routine Abdominal Exam Present: soft, normoactive bowel sounds. Absent: tenderness Comments: Significant improvement in erythema within fold of pannus, additionally noted erythema under breasts bilaterally with satellite lesions. Decreased warm. ointment on rash on abdomen - *Routine Extremities Exam Present: edema. Absent: cyanosis, clubbing Comments: Chronic venous stasis dermatitis bilaterally, dense edema that is nonpitting on bilateral lower legs with tenderness to palpation no warmth or bulla - *Routine Skin Exam Present: intact, warm, rash Comments: Improvement in erythematous rash in skin folds, no fluctuance or abscesses, chronic stasis dermatitis in BLE with dense edema to knees. 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 Assessment and Plan (1) Chronic iron deficiency anemia Current visit: Yes Status: Chronic Category: Medical Code(s): D50.9 - Iron deficiency anemia, unspecified (2) Candidal dermatitis Current visit: Yes Status: Acute Category: Medical Code(s): B37.2 - Candidiasis of skin and nail (3) Pickwickian syndrome Current visit: Yes Status: Acute Category: Medical Code(s): E66.2 - Morbid (severe) obesity with alveolar hypoventilation (4) Debility Current visit: Yes Status: Acute Category: Medical Code(s): R53.81 - Other malaise (5) Morbid obesity Current visit: Yes Status: Chronic Category: Medical Code(s): E66.01 - Morbid (severe) obesity due to excess calories (6) Panniculitis Current visit: Yes Status: Acute Category: Medical Code(s): M79.3 - Panniculitis, unspecified (7) Candidal intertrigo Current visit: Yes Status: Acute Category: Medical Code(s): B37.2 - Candidiasis of skin and nail (8) E. coli UTI Current visit: Yes Status: Acute Category: Medical Code(s): N39.0 - Urinary tract infection, site not specified; B96.20 - Unspecified Escherichia coli [E. coli] as the cause of diseases classified elsewhere - Assessment and plan all Dx Assessment and Plan for all problems:: 63-year-old female with debility, orbit obesity, intertrigo, Klebsiella UTI. Transition to oral therapy and topical therapy for her conditions. Medically stable for discharge to nursing facility when placement found. Continues to require significant assistance to ambulate and get out of bed. Feel she would be safest by having a short stay for physical therapy and rehab at a halfway prior to getting home to give her best success at returning to level of independence.
--- NOTE | 2019-05-03 08:31 | Progress Note ---
Internal Medicine - PN: Subj *Date: 05/03/19 *Time: 08:26 Interval history: Ms. Sanchez did well overnight. Has yet to have a bowel movement however. Tolerating good p.o. intake. Worked well with physical therapy yesterday taking a few steps around the room and getting up out of bed to a potty chair. Remains afebrile. Hemodynamically stable with blood pressure slightly elevated. Denies chest pain, shortness of breath, nausea, vomiting. Reports her rash is improving Exam Vital signs and Labs for Last 24 Hours: Temp Pulse Resp BP Pulse Ox 98.5 F 81 18 161/73 H 93 L 05/03/19 07:33 05/03/19 07:33 05/03/19 07:33 05/03/19 07:33 05/03/19 07:33 I & O for Last 24 hours: Intake & Output 04/30/19 05/01/19 05/02/19 05/03/19 23:59 23:59 23:59 23:59 Intake Total 1953 / 1953 720 / 720 720 / 1200 840 / 840 Output Total 4900 / 5350 450 / 600 1650 / 1650 300 / 300 Balance -2947 / -3397 270 / 120 -930 / -450 540 / 540 Weight 154.5 kg 156.3 kg 156.3 kg 155.27 kg Narrative: - Constitutional No acute distress, morbidly obese, chronically ill appearing - *Routine HEENT Exam Head: Present: normocephalic Eye: Present: EOMI, PERRL ENT: Present: mucous membranes moist - *Routine Neck Exam Present: supple. Absent: lymphadenopathy - *Routine Respiratory Exam Present: diminished air movement (worse at bases). Absent: wheezes, crackles - *Routine Cardiovascular Exam Present: RRR - *Routine Abdominal Exam Present: soft, normoactive bowel sounds. Absent: tenderness Comments: Minimal erythema within fold of pannus, mixture of nystatin powder and steroid cream making paste within the folds. Minimal warmth. - *Routine Extremities Exam Present: edema. Absent: cyanosis, clubbing Comments: Chronic venous stasis dermatitis bilaterally, dense edema that is nonpitting on bilateral lower legs with tenderness to palpation no warmth or bulla - *Routine Skin Exam Present: intact, warm, rash - *Routine Neurological Exam Present: alert, oriented X3. Assessment and Plan (1) Chronic iron deficiency anemia Current visit: Yes Status: Chronic Category: Medical Code(s): D50.9 - Iron deficiency anemia, unspecified (2) Candidal dermatitis Current visit: Yes Status: Acute Category: Medical Code(s): B37.2 - Candidiasis of skin and nail (3) Pickwickian syndrome Current visit: Yes Status: Acute Category: Medical Code(s): E66.2 - Morbid (severe) obesity with alveolar hypoventilation (4) Debility Current visit: Yes Status: Acute Category: Medical Code(s): R53.81 - Other malaise (5) Morbid obesity Current visit: Yes Status: Chronic Category: Medical Code(s): E66.01 - Morbid (severe) obesity due to excess calories (6) Panniculitis Current visit: Yes Status: Acute Category: Medical Code(s): M79.3 - Panniculitis, unspecified (7) Candidal intertrigo Current visit: Yes Status: Acute Category: Medical Code(s): B37.2 - Candidiasis of skin and nail (8) E. coli UTI Current visit: Yes Status: Acute Category: Medical Code(s): N39.0 - Urinary tract infection, site not specified; B96.20 - Unspecified Escherichia coli [E. coli] as the cause of diseases classified elsewhere - Assessment and plan all Dx Assessment and Plan for all problems:: 63-year-old female with obesity and debility. Showing gradual improvement for her intertrigo. Continuing treatment of her UTI. Patient has been accepted by [facility] and is awaiting discharge on Sunday. Continue current care. Advance bowel regimen due to no BM since admission.
--- NOTE | 2019-05-04 08:41 | Progress Note ---
Internal Medicine - PN: Subj *Date: 05/04/19 *Time: 12:07 Interval history: Ms. Sanchez did well overnight. Continues to be stable at this time. Still having significant difficulty ambulating without assistance. Denies fever, chest pain, shortness of breath. Does complain of leg pain after sitting in the bedside chair yesterday for several hours. Is otherwise getting up and using the bedside commode with assistance. Exam Vital signs and Labs for Last 24 Hours: Temp Pulse Resp BP Pulse Ox 98.2 F 79 18 125/51 L 92 L 05/04/19 08:00 05/04/19 08:00 05/04/19 08:00 05/04/19 08:00 05/04/19 08:00 I & O for Last 24 hours: Intake & Output 05/01/19 05/02/19 05/03/19 05/04/19 23:59 23:59 23:59 23:59 Intake Total 720 / 720 720 / 1200 1560 / 1560 360 / 360 Output Total 450 / 600 1650 / 1650 2700 / 2700 400 / 400 Balance 270 / 120 -930 / -450 -1140 / -1140 -40 / -40 Weight 156.3 kg 156.3 kg 155.27 kg 152.5 kg Microbiology Reports for the Last 24 Hours: Microbiology 04/28/19 14:11 Blood Blood Culture - Final NO GROWTH AFTER 5 DAYS 04/28/19 14:11 Blood Blood Culture - Final NO GROWTH AFTER 5 DAYS Narrative: - Constitutional No acute distress, morbidly obese, chronically ill appearing - *Routine HEENT Exam Head: Present: normocephalic Eye: Present: EOMI, PERRL ENT: Present: mucous membranes moist - *Routine Neck Exam Present: supple. Absent: lymphadenopathy - *Routine Respiratory Exam Present: diminished air movement (worse at bases). Absent: wheezes, crackles - *Routine Cardiovascular Exam Present: RRR - *Routine Abdominal Exam Present: soft, normoactive bowel sounds. Absent: tenderness Comments: Significant improvement in rash. Faint erythema within fold of pannus. mixture of nystatin powder and steroid cream making paste within the folds. Minimal warmth. - *Routine Extremities Exam Present: edema. Absent: cyanosis, clubbing Comments: Chronic venous stasis dermatitis bilaterally, dense edema that is nonpitting on bilateral lower legs with tenderness to palpation no warmth or bulla; tenderness to legs bilaterally to light touch from feet to mid thigh - *Routine Skin Exam Present: intact, warm, rash improving - *Routine Neurological Exam Present: alert, oriented X3. Assessment and Plan (1) Chronic iron deficiency anemia Current visit: Yes Status: Chronic Category: Medical Code(s): D50.9 - Iron deficiency anemia, unspecified (2) Candidal dermatitis Current visit: Yes Status: Acute Category: Medical Code(s): B37.2 - Candidiasis of skin and nail (3) Pickwickian syndrome Current visit: Yes Status: Acute Category: Medical Code(s): E66.2 - Morbid (severe) obesity with alveolar hypoventilation (4) Debility Current visit: Yes Status: Acute Category: Medical Code(s): R53.81 - Other malaise (5) Morbid obesity Current visit: Yes Status: Chronic Category: Medical Code(s): E66.01 - Morbid (severe) obesity due to excess calories (6) Panniculitis Current visit: Yes Status: Acute Category: Medical Code(s): M79.3 - Panniculitis, unspecified (7) Candidal intertrigo Current visit: Yes Status: Acute Category: Medical Code(s): B37.2 - Candidiasis of skin and nail (8) E. coli UTI Current visit: Yes Status: Acute Category: Medical Code(s): N39.0 - Urinary tract infection, site not specified; B96.20 - Unspecified Escherichia coli [E. coli] as the cause of diseases classified elsewhere - Assessment and plan all Dx Assessment and Plan for all problems:: 63-year-old with significant debility, panniculitis, intertrigo, UTI. Awaiting placement with assisted for further physical therapy tomorrow. Anticipate discharge on Sunday. Otherwise hemodynamically stable with no acute complaints today
--- NOTE | 2019-05-04 21:04 | Discharge Summary ---
General - General Admission date:: 04/28/19 Discharge date: 05/05/19 HPI HPI: Ms. Sanchez is a morbidly obese 63-year-old female with history of failed gastric bypass surgery, knee replacement a year ago, pickwickian syndrome on BiPAP and oxygen at night, and worsening debility over the past year. She presented to the ER yesterday due to concern for worsening fatigue and inability to perform ADLs it is progressed for the past month. She denied any focal pain but complained of just weakness and fatigue. Falling asleep during the day which is abnormal for her even with her use of BiPAP. Work-up in the ER consisted of labs and abdominal CT. She was found to have anemia, suspected to be chronic, and significant haziness/stranding of fat within her pannus concerning for inflammation/infection. Additionally her urine was concerning for a UTI. She was admitted to medicine for further management of her acute and suspected chronic conditions. This morning she states she has had bad experiences at previous hospitals and requested to come to [facility]. She has been living at home with a home health aide who comes in daily to assist her with housework and care. This is been going on for over a year since having her knee replaced. She states she is normally able to ambulate around her home and do things such as laundry, dishes, cleaning but has not been able to do any of this for the past month and it progressed to the point that she was unable to even walk to the bathroom. She denies any fevers, chest pain, worsening shortness of breath at home. Does state however she is been falling asleep more easily and has had a change in her urine. Additionally reports that approximately a month ago she was diagnosed with a pneumonia and treated in the outpatient setting. This correlates to the onset of her worsening fatigue and debility. Eating breakfast on interview and appears comfortable. Hospital Course Hospital Course: Ms. Sanchez was admitted for debility, UTI, concern for panniculitis versus intertrigo. During her admission she was started on IV antibiotics for her UTI with gradual improvement in symptoms. Decision was made to transition to oral therapy for 1 more dose at time of discharge to complete course. Her panniculitis was less severe than initially presumed and treated as intertrigo with significant improvement using topical antifungal powder and potency steroids. As for her debility, it was elicited that this is actually progressed over the past month after being diagnosed with a pneumonia a month ago. She was seen by physical therapy and there was significant concern for her ability to care for herself at home being essentially immobile due to her obesity and pickwickian syndrome. Placement was attempted at numerous nursing homes where we were unable to find successful placement or acceptance due to complications with patient's weight/needs and insurance. During admission it was also discovered however that the patient currently has a waiver for care at home consisting of usp 5 days a week for 5 hours a day, mobility devices and DME consisting of a hospital bed, bedside commode, wheelchair, power chair, lift chair, walker, and a nurse practitioner that visits her at home. Discussions with family and her caregiver led to an increase in the amount of time her usp will be with her (8 hours a day) and she has had family that agree to check on her in the interim so that she is not totally alone and without some type of assistance in helping get to the bathroom or get fluids and nutrition. It is our assessment at this time that as she is back to her baseline for most respects and has been working with physical therapy being able to get to the edge of the bed on her own along with the fact that she has significant assistance at home and resources with her mobility aids it is in her best interest that we get her back home and continue in-home physical therapy moving forward. Patient denies chest pain, shortness of breath, fever, nausea, vomiting. Has had difficult time getting her to have a bowel movement during admission. On an aggressive bowel regimen. No belly pain however and patient has been passing gas. Started on PO iron due to anemia with microcytosis on labd. Recommend close follow-up with her PCP in the outpatient setting and colonscopy to further assess her anemia. Medically stable for DC to the care of her skilled nurse at home. Objective Vital signs: Temp Pulse Resp BP Pulse Ox 98.7 F 69 17 115/61 91 L 05/04/19 19:43 05/04/19 19:43 05/04/19 19:43 05/04/19 19:43 05/04/19 19:43 Narrative: - Constitutional No acute distress, morbidly obese, chronically ill appearing - *Routine HEENT Exam Head: Present: normocephalic Eye: Present: EOMI, PERRL ENT: Present: mucous membranes moist - *Routine Neck Exam Present: supple. Absent: lymphadenopathy - *Routine Respiratory Exam Present: diminished air movement (worse at bases). Absent: wheezes, crackles - *Routine Cardiovascular Exam Present: RRR - *Routine Abdominal Exam Present: soft, normoactive bowel sounds. Absent: tenderness Comments: minimal intertriginous rash. Faint erythema within fold of pannus. mixture of nystatin powder and steroid cream making paste within the folds. Minimal warmth. - *Routine Extremities Exam Present: edema. Absent: cyanosis, clubbing Comments: Chronic venous stasis dermatitis bilaterally, dense edema that is nonpitting on bilateral lower legs with tenderness to palpation no warmth or bulla; tenderness to legs bilaterally to light touch from feet to mid thigh - *Routine Skin Exam Present: intact, warm, rash improving - *Routine Neurological Exam Present: alert, oriented X3. DS: Diagnosis - Discharge Diagnosis (1) Chronic iron deficiency anemia Status: Chronic (2) Candidal dermatitis Status: Acute (3) Pickwickian syndrome Status: Chronic (4) Debility Status: Chronic (5) Morbid obesity Status: Chronic (6) Panniculitis Status: Acute (7) Candidal intertrigo Status: Acute (8) E. coli UTI Status: Acute Discharge Plan - Patient Discharge Instructions ACTIVITY: Up with assistance DIET: continue same diet - Follow up Plan Follow up with: Provider,Referral, [Primary Care Provider] - Disposition: Home Health Service Home Medications: Home Medications Medication Instructions Recorded Confirmed Type Gabapentin 800 mg PO TID 04/28/19 04/29/19 History Omeprazole 20 mg PO BID 04/28/19 04/29/19 History Oxycodone HCl [OxyIR 5mg tablet] 5 mg PO QID 04/28/19 04/29/19 History Quetiapine Fumarate 50 - 100 mg PO BID 04/28/19 04/29/19 History Ropinirole HCl 4 - 8 mg PO TID 04/28/19 04/29/19 History Simvastatin 10 mg PO HS 04/28/19 04/29/19 History Tizanidine HCl 2 mg PO HS 04/28/19 04/29/19 History Venlafaxine HCl [Venlafaxine HCl 150 mg PO BID 04/28/19 04/29/19 History ER] Allopurinol [Allopurinol 100mg 100 mg PO DAILY 04/29/19 04/29/19 History tablet] Atenolol [Atenolol 25mg Tab] 25 mg PO DAILY 04/29/19 04/29/19 History Bumetanide 1 mg PO DAILY 04/29/19 04/29/19 History Calcium Carbonate [Calcium] 600 mg PO DAILY 04/29/19 04/29/19 History Ergocalciferol (Vitamin D2) 50,000 unit PO WEEKLY 04/29/19 04/29/19 History [Vitamin D2] Potassium Chloride [Klor-Con M10] 10 meq PO TID 04/29/19 04/29/19 History Ferrous Sulfate [Ferrous Sulfate 325 mg PO DAILY 30 Days #30 tab 05/04/19 Rx 325mg Tablet] Sennosides/Docusate Sodium 1 tab PO BID 30 Days #60 tab 05/04/19 Rx [Senokot-S Tablet] Triamcinolone Acetonide [Kenalog 1 gm TP TID 10 Days #1 tube 05/04/19 Rx 0.1% cream 80gm tube] levoFLOXacin [Levaquin 750mg 750 mg PO Q48H 1 Days #1 tab 05/04/19 Rx tablet] Prescriptions/Medication Reconciliation: New Ferrous Sulfate [Ferrous Sulfate 325mg Tablet] 325 mg PO DAILY 30 Days #30 tab Nystatin [Nystatin Topical Powder 30GM] 0 gm TP TID bottle Sennosides/Docusate Sodium [Senokot-S Tablet] 1 tab PO BID 30 Days #60 tab Triamcinolone Acetonide [Kenalog 0.1% cream 80gm tube] 1 gm TP TID 10 Days #1 tube Polyethylene Glycol 3350 [Miralax 17gm Packet] 17 gm PO BIDP PRN powd.pack PRN Reason: Constipation levoFLOXacin [Levaquin 750mg tablet] 750 mg PO Q48H 1 Days #1 tab Continued Venlafaxine HCl [Venlafaxine HCl ER] 150 mg PO BID Tizanidine HCl 2 mg PO HS Simvastatin 10 mg PO HS Ropinirole HCl 4 - 8 mg PO TID Quetiapine Fumarate 50 - 100 mg PO BID Omeprazole 20 mg PO BID Gabapentin 800 mg PO TID Allopurinol [Allopurinol 100mg tablet] 100 mg PO DAILY Calcium Carbonate [Calcium] 600 mg PO DAILY Bumetanide 1 mg PO DAILY Ergocalciferol (Vitamin D2) [Vitamin D2] 50,000 unit PO WEEKLY Oxycodone HCl [OxyIR 5mg tablet] 5 mg PO QID Atenolol [Atenolol 25mg Tab] 25 mg PO DAILY Potassium Chloride [Klor-Con M10] 10 meq PO TID - Problem Reconciliation Problems Reviewed?: Yes
--- NOTE | 2019-05-05 08:27 | Progress Note ---
Internal Medicine - PN: Subj *Date: 05/05/19 *Time: 09:59 Interval history: Continues to be hemodynamically stable. Tolerating good p.o. intake. Did not get out of bed yesterday due to limited physical therapy at the hospital. Afebrile, denies shortness of breath, chest pain, nausea, vomiting. Still not had a bowel movement. Is currently using a female urinal instead of getting up and using the bedside commode. Extensive discussion this morning about patient's incontinence and starting some pelvic floor training techniques. Also discussed the importance of her getting up and being mobile to help have a bowel movement and prevent her from becoming more debilitated. Exam Vital signs and Labs for Last 24 Hours: Temp Pulse Resp BP Pulse Ox 97.9 F 87 20 127/78 94 L 05/05/19 08:22 05/05/19 08:22 05/05/19 08:22 05/05/19 08:22 05/05/19 08:22 I & O for Last 24 hours: Intake & Output 05/02/19 05/03/19 05/04/19 05/05/19 23:59 23:59 23:59 23:59 Intake Total 720 / 1200 1560 / 1560 600 / 600 480 / 480 Output Total 1650 / 1650 2700 / 2700 400 / 900 950 / 950 Balance -930 / -450 -1140 / -1140 200 / -300 -470 / -470 Weight 156.3 kg 155.27 kg 152.5 kg 152.046 kg Narrative: - Constitutional No acute distress, morbidly obese, chronically ill appearing - *Routine HEENT Exam Head: Present: normocephalic Eye: Present: EOMI, PERRL ENT: Present: mucous membranes moist - *Routine Neck Exam Present: supple. Absent: lymphadenopathy - *Routine Respiratory Exam Present: diminished air movement (worse at bases). Absent: wheezes, crackles - *Routine Cardiovascular Exam Present: RRR - *Routine Abdominal Exam Present: soft, normoactive bowel sounds. Absent: tenderness Comments: Significant improvement in rash. Faint erythema within fold of pannus. mixture of nystatin powder and steroid cream making paste within the folds. Minimal warmth. - *Routine Extremities Exam Present: edema. Absent: cyanosis, clubbing Comments: Chronic venous stasis dermatitis bilaterally, dense edema that is nonpitting on bilateral lower legs with tenderness to palpation no warmth or bulla; tenderness to legs bilaterally to light touch from feet to mid thigh - *Routine Skin Exam Present: intact, warm, rash improving - *Routine Neurological Exam Present: alert, oriented X3. Assessment and Plan (1) Chronic iron deficiency anemia Current visit: Yes Status: Chronic Category: Medical Code(s): D50.9 - Iron deficiency anemia, unspecified (2) Candidal dermatitis Current visit: Yes Status: Acute Category: Medical Code(s): B37.2 - Candid iasis of skin and nail (3) Pickwickian syndrome Current visit: Yes Status: Acute Category: Medical Code(s): E66.2 - Morbid (severe) obesity with alveolar hypoventilation (4) Debility Current visit: Yes Status: Acute Category: Medical Code(s): R53.81 - Other malaise (5) Morbid obesity Current visit: Yes Status: Chronic Category: Medical Code(s): E66.01 - Morbid (severe) obesity due to excess calories (6) Panniculitis Current visit: Yes Status: Acute Category: Medical Code(s): M79.3 - Panniculitis, unspecified (7) Candidal intertrigo Current visit: Yes Status: Acute Category: Medical Code(s): B37.2 - Candidiasis of skin and nail (8) E. coli UTI Current visit: Yes Status: Acute Category: Medical Code(s): N39.0 - Urinary tract infection, site not specified; B96.20 - Unspecified Escherichia coli [E. coli] as the cause of diseases classified elsewhere - Assessment and plan all Dx Assessment and Plan for all problems:: 63-year-old finishing treatment for UTI with 1 more dose of p.o. Levaquin due tomorrow. Awaiting placement with rehab. If patient is not approved for rehab today, plan to likely discharge home. This is not my first preference given her weakness and debility however she has had approval for home health aide 8 hours a day 5 days a week and has been able to get commitments this weekend from family that they will assist on weekends for the time being. Additionally would work on getting increased home health physical therapy. Otherwise she has all DME needs at home. Pending preauthorization from insurance for [facility] placement. Anticipate discharge today or tomorrow.
--- NOTE | 2019-05-05 08:51 | Progress Note ---
Internal Medicine - PN: Subj *Date: 05/05/19 *Time: 08:51 Exam Vital signs and Labs for Last 24 Hours: Temp Pulse Resp BP Pulse Ox 97.9 F 87 20 127/78 94 L 05/05/19 08:22 05/05/19 08:22 05/05/19 08:22 05/05/19 08:22 05/05/19 08:22 I & O for Last 24 hours: Intake & Output 05/02/19 05/03/19 05/04/19 05/05/19 23:59 23:59 23:59 23:59 Intake Total 720 / 1200 1560 / 1560 600 / 600 480 / 480 Output Total 1650 / 1650 2700 / 2700 400 / 900 950 / 950 Balance -930 / -450 -1140 / -1140 200 / -300 -470 / -470 Weight 156.3 kg 155.27 kg 152.5 kg 152.046 kg Assessment and Plan (1) Chronic iron deficiency anemia Current visit: Yes Status: Chronic Category: Medical Code(s): D50.9 - Iron deficiency anemia, unspecified (2) Candidal dermatitis Current visit: Yes Status: Acute Category: Medical Code(s): B37.2 - Candidiasis of skin and nail (3) Pickwickian syndrome Current visit: Yes Status: Acute Category: Medical Code(s): E66.2 - Morbid (severe) obesity with alveolar hypoventilation (4) Debility Current visit: Yes Status: Acute Category: Medical Code(s): R53.81 - Other malaise (5) Morbid obesity Current visit: Yes Status: Chronic Category: Medical Code(s): E66.01 - Morbid (severe) obesity due to excess calories (6) Panniculitis Current visit: Yes Status: Acute Category: Medical Code(s): M79.3 - Panniculitis, unspecified (7) Candidal intertrigo Current visit: Yes Status: Acute Category: Medical Code(s): B37.2 - Candidiasis of skin and nail (8) E. coli UTI Current visit: Yes Status: Acute Category: Medical Code(s): N39.0 - Urinary tract infection, site not specified; B96.20 - Unspecified Escherichia coli [E. coli] as the cause of diseases classified elsewhere The patient's infection will respond to the chosen ABx?: Yes Is the patient receiving the right drug, dose, and route?: Yes Could a more targeted ABx be ordered?: No
== END 2019-05-05 16:55 | disposition home health service (06) ==
LOC: ER 13:55 → 2ND 13:55
PROVIDERS: ADMIT Internal Medicine Adolescent Medicine; ATTEND Internal Medicine Adolescent Medicine
DX: M79.3 Panniculitis, unspecified; R53.81 Other malaise; D50.9 Iron deficiency anemia, unspecified; Z88.2 Allergy status to sulfonamides; Z88.6 Allergy status to analgesic agent; N39.0 Urinary tract infection, site not specified; B37.2 Candidiasis of skin and nail; B96.1 Klebsiella pneumoniae [K. pneumoniae] as the cause of diseases classified elsewhere; Z23 Encounter for immunization; Z16.29 Resistance to other single specified antibiotic; E66.2 Morbid (severe) obesity with alveolar hypoventilation; Z79.899 Other long term (current) drug therapy
CPT/HCPCS: 36415; 71010; 71045; 71250; 74176; 80048; 80053; 81001; 83605; 85007; 85014; 85018; 85025; 87040; 87086; 87088; 87186; 90686; 90732; 94761; 96365; 96367; 96375; 97110; 97116; 97162; 97530; 99285; G0378; J3370

== ENCOUNTER → 2020-01-29 17:46 | Outpatient (CLI) | payer MEDICARE, MEDICAID, SELFPAY ==
[2020-01-29 18:03] LABS: Microscopic, Urine URINE MICROSCOPIC (MICROSCOPIC)
[2020-01-29 18:28] LABS: Appearance,Urine CLOUDY (Clear); Bilirubin,Urine Negative (Negative); Blood, Urine Negative (Negative); Color,Urine YELLOW (Yellow); Glucose,Urine (UA) Negative (Negative); Ketones,Urine Negative (Negative); Leukocyte Esterase,Urine Negative (Negative); Nitrate,Urine Negative (Negative); Protein,Urine TRACE (Negative); Specific Gravity, Urine >= 1.030 (1.005-1.030)
[2020-01-29 19:00] LABS: Anion Gap 11.9 mEq/L (5-15); Blood Urea Nitrogen 11 mg/dl (7-17); Calcium 8.2 mg/dl (8.4-10.2); Carbon Dioxide 28 mmol/L (22.0-30.0); Chloride 108 mmol/L (98-107); Estimated Glomerular Filt Rate 100 ml/min (>60); GFR (African American) 121 ML/MIN (>60); Glucose 93 mg/dl (74-100); Potassium 3.9 mmoL/L (3.5-5.1); Sodium 144 mmol/L (136-145)
[2020-01-29 19:07] LABS: NT Pro Brain Natriuretic Pep. 4370 pg/mL (0-125)
[2020-01-29 19:12] LABS: Bacteria,Urine Trace /lpf; Hyaline Casts,Urine Occasional #/lpf (0); RBC,Urine Occasional #/hpf (0-3); Yeast,Urine Occasional /lpf
== END ==
DX: I50.9 Heart failure, unspecified (principal); I11.0 Hypertensive heart disease with heart failure
CPT/HCPCS: 80048; 81001; 83880

== ENCOUNTER 2020-02-03 12:31 | Observation (INO) | payer MEDICARE, MEDICAID, SELFPAY ==
[2020-02-03] VITALS (9 sets, daily range): BP systolic 128–158; BP diastolic 63–74; PULSE 64–79; RESP 16–20; TEMP 36.4–36.8; O2SAT 92–100; BMI 55.7; BMI 60.5
--- NOTE | 2020-02-03 12:41 | XR_ITS ---
PROCEDURE: XR CHEST PORTABLE CLINICAL HISTORY: short of breath, fluid overload COMPARISON: CT CHEST WO CON from 04/28/2019 XR CHEST PORTABLE from 04/30/2019 XR CHEST PORTABLE from 09/17/2019 FINDINGS: There is mild cardiomegaly without failure. There is some patchy density in the right lung base which may be due to an area of atelectasis or patchy infiltrate. There are low lung volumes. No acute bony findings. IMPRESSION: Cardiomegaly with right basilar atelectasis or infiltrate. Dictated by: Sohail Walls MD 02/03/2020 12:59 Electronically signed by Sohail Walls MD in [facility] 02/03/2020 12:59
--- NOTE | 2020-02-03 12:42 | [facility].EDGENADL ---
ED Disposition Clinical Impression: Hypercarbia, Super obesity, Debility Acute exacerbation of CHF (congestive heart failure) Qualifiers: Heart failure type: unspecified Qualified Code(s): I50.9 - Heart failure, unspecified Disposition: Admitted As Inpatient Condition on Discharge: Fair Time of Disposition: 15:28 - Critical Care Critical Care Time: No Attestation: On , the high probability of a clinically significant, sudden or life threatening deterioration of the following system(s) required my full and direct attention, intervention and personal management. The time I documented below is in addition to time spent performing reported procedures but includes the following listed in this critical care notation. Medical Decision Making - Medical Records Medical records reviewed: Yes: I reviewed the patient's medical records. - Mehdi Inquiry Pt receiving controlled substance: No Vital Signs: 02/03/20 12:23 02/03/20 12:43 02/03/20 13:13 Temperature 97.9 F Temperature Source Oral Pulse Rate [Radial] 68 68 66 Respiratory Rate 20 16 Blood Pressure [Right Arm] 141/69 H 148/73 H 154/74 H Blood Pressure Mean [Right Arm] 93 98 100 Blood Pressure Source [Right Arm] Automatic Cuff Automatic Cuff Automatic Cuff Blood Pressure Position [Right Arm] Sitting Sitting Sitting 02 Sat by Pulse Oximetry 95 92 L 95 Oxygen Delivery Method Room Air Room Air Room Air 02/03/20 14:13 02/03/20 14:35 Temperature Temperature Source Pulse Rate [Radial] 64 66 Respiratory Rate Blood Pressure [Right Arm] 158/74 H 151/74 H Blood Pressure Mean [Right Arm] 102 99 Blood Pressure Source [Right Arm] Automatic Cuff Automatic Cuff Blood Pressure Position [Right Arm] Sitting Sitting 02 Sat by Pulse Oximetry 100 100 Oxygen Delivery Method Room Air Room Air - Lab Data Lab Results 02/03/20 12:41: VBG pH 7.25 L, VBG pCO2 61.5 H, VBG pO2 138.7 H, VBG HCO3 26.5, VBG Total CO2 28.4 H, VBG O2 Saturation 98.6 H, VBG Base Excess -0.6 02/03/20 14:30: WBC 4.2 L, RBC 3.79 L, Hgb 8.4 L, Hct 29.1 L, MCV 76.8 L, MCH 22.1 L, MCHC 28.8 L, RDW 18.7 H, Plt Count 122 L, MPV 10.0, Neut % (Auto) 69.5, Lymph % (Auto) 20.9, Lea % (Auto) 5.6, Eos % (Auto) 3.3, Baso % (Auto) 0.6, Neut # (Auto) 2.9, Lymph # (Auto) 0.9, Lea # (Auto) 0.2, Eos # (Auto) 0.1, Baso # (Auto) 0.0 02/03/20 14:30: Sodium 144, Potassium 3.5, Chloride 108 H, Carbon Dioxide 31 H, Anion Gap 8.5, BUN 10, Creatinine 0.60, Estimated Creat Clear 48, Estimated GFR 100, Est GFR ( Amer) 121, Glucose 95, Calcium 8.3 L, Total Bilirubin 0.5, AST 17, ALT 8 L, Alkaline Phosphatase 95, Troponin I < 0.01, NT-Pro-B Natriuret Pep 4180 H, Total Protein 6.5, Albumin 3.3 L, Globulin 3.2, Albumin/Globulin Ratio 1.0 L Result diagrams: 02/03/20 14:30 02/03/20 14:30 Orders (Tests/Meds): ED MEDICATIONS Discontinued Medications Generic Name Dose Route Start Last Admin Trade Name Freq PRN Reason Stop Dose Admin Furosemide 40 mg 02/03/20 15:07 02/03/20 15:20 Lasix 40mg/4ml Vial IV 02/03/20 15:08 40 mg ONCE ONE Administration ORDERS Category Date Time Status EKG Request [ECG Request by /Ally] Stat Y 02/03/20 12:41 Ordered - Radiology Data #1 Image(s): Chest Image Reviewed: Yes I reviewed the patient's radiology results, Yes I reviewed the patient's radiology image FINDINGS: There is mild cardiomegaly without failure. There is some patchy density in the right lung base which may be due to an area of atelectasis or patchy infiltrate. There are low lung volumes. No acute bony findings. IMPRESSION: Cardiomegaly with right basilar atelectasis or infiltrate. - ECG Data Tracing #1 Sinus rhythm with ventricular rate of 66 bpm. Low voltage QRS. QRS 74, QTc 532. Medical Decision Narrative: In summary this is a 64-year-old female presenting to the emergency department with lower extremity swelling, fatigue, generalized weakness. Patient is s
--- NOTE | 2020-02-03 13:52 | ECG_ITS ---
APPROVED REPORT Exam: Resting ECG HR:66 bpm ECG Measurements Heart Rate 66 AXES KS 190 P 57 QRSd 74 QRS 40 QT 508 T 92 QTc 532 <Conclusion> Normal sinus rhythm Low voltage QRS Nonspecific T wave abnormality Prolonged QT Abnormal ECG Electronically signed by : Angel Luis Burrows, 02/07/2020 08:12:37
--- NOTE | 2020-02-03 14:29 | PC.NURSE ---
Lab at bedside
[2020-02-03 14:42] LABS: Basophils % 0.6 % (0.1-2.0); Eosinophils # 0.1 K/mm3 (0.0-0.4); Eosinophils % 3.3 % (0.1-12.0); Hematocrit 29.1 % (37.0-47.0); Hemoglobin 8.4 g/dL (12.2-16.2); Lymphocytes # 0.9 K/mm3 (0.7-4.5); Lymphocytes % 20.9 % (10-50); Mean Corpuscular HGB Conc 28.8 g/dL (31.8-35.4); Mean Corpuscular Hemoglobin 22.1 pg (27.0-31.2); Mean Corpuscular Volume 76.8 fl (81-99); Monocytes # 0.2 K/mm3 (0.1-1.0); Monocytes % 5.6 % (1.7-9.3); Neutrophils # 2.9 K/mm3 (1.8-7.8); Neutrophils % 69.5 % (37.0-80.0); Platelet Count 122 K/mm3 (142-424); Red Blood Count 3.79 M/mm3 (4.20-5.40); Red Cell Distribution Width 18.7 % (11.5-17.5); White Blood Count 4.2 K/mm3 (4.8-10.8)
[2020-02-03 14:51] LABS: Alanine Aminotransferase 8 U/L (12-78); Albumin Level 3.3 g/dl (3.5-5.0); Alkaline Phosphatase 95 U/L (38-126); Anion Gap 8.5 mEq/L (5-15); Aspartate Amino Transferase 17 U/L (14-36); Bilirubin,Total 0.5 mg/dl (0.2-1.3); Blood Urea Nitrogen 10 mg/dl (7-17); Calcium 8.3 mg/dl (8.4-10.2); Carbon Dioxide 31 mmol/L (22.0-30.0); Chloride 108 mmol/L (98-107); Creatinine Clearance Estimated 48 mL/min (50-200); Estimated Glomerular Filt Rate 100 ml/min (>60); GFR (African American) 121 ML/MIN (>60); Globulin 3.2 g/dL (1.3-3.2); Glucose 95 mg/dl (74-100); Potassium 3.5 mmoL/L (3.5-5.1); Sodium 144 mmol/L (136-145); Total Protein,Serum 6.5 g/dl (6.3-8.2)
[2020-02-03 14:55] LABS: VBG PH 7.25 mmol/L (7.31-7.41)
[2020-02-03 14:56] LABS: VBG PCO2 61.5 mmol/L (35-51)
[2020-02-03 14:57] LABS: VBG HCO3 26.5 mmol/L (23-30); VBG PO2 138.7 mmol/L (28-40)
[2020-02-03 14:58] LABS: VBG Base Excess -0.6 mmol/L (-2.4-2.3); VBG Oxygen Saturation 98.6 % (50-70); VBG Total CO2 28.4 mmol/L (23-27)
[2020-02-03 15:03] LABS: NT Pro Brain Natriuretic Pep. 4180 pg/mL (0-125)
[2020-02-03 15:08] LABS: Troponin I < 0.01 ng/ml (0.00-0.034)
--- NOTE | 2020-02-03 15:21 | PC.NURSE ---
speaking with Dr. Gaines
--- NOTE | 2020-02-03 15:33 | CA_ITS ---
APPROVED REPORT EXAM: Comprehensive 2D, Doppler, and color-flow Echocardiogram Plan Manager: Anel Aguilar RDCS Ht: 5 ft 4 in Wt: 325lbs BSA: 2.40 BP: 151/74 mmHg Indications: CHF,MORBID OBESITY, COPD,EDEMA 2D Dimensions LVOT 1.95 cm (M/F) 1.5-2.5 M-Mode Dimensions RVDd 3.05 cm (0.9-2.6) LVDd 5.38 cm (3.5-5.7) LVDs 4.20 cm (3.5-5.7) IVSd 1.14 cm (0.6-1.1) PWd 1.10 cm (0.6-1.1) EF (Teich) 43.90% FS 21.90% EDV (Teich) 140.10 mL ESV (Teich) 78.60 mL LV Diastology E/A Ratio 1.18 Mitral Valve MV A Velocity 75.00 (40-130 cm/s) Left Ventricle Left atrium is moderately enlarged, left ventricle is normal size, mild concentric left ventricular hypertrophy, visually estimated ejection fraction 50% with no regional wall motion abnormality, endocardial surfaces are poorly visualized, grade 1 diastolic dysfunction seen with tissue Doppler evidence of raise left atrial pressure. Right Ventricle Right atrium and right ventricle mildly enlarged with normal contractility. Aortic Valve Aortic valve is thickened and calcified leaflet chordae display good mobility, there is no aortic stenosis or aortic insufficiency. Mitral Valve Mitral valve has mitral calcification, leaflets are minimally thickened, there is no mitral stenosis, there is mild mitral regurgitation. Tricuspid Valve Tricuspid valve is grossly normal, there is mild tricuspid regurgitation. Pulmonic Valve Pulmonic valve is poorly visualized. Great Vessels Aortic root is normal size. Pericardium No significant pericardial effusion noted. Conclusion 1. Biatrial enlargement, normal left ventricular size, mild concentric left ventricular hypertrophy, visually estimated ejection fraction 55% with no regional wall motion abnormality, grade 1 diastolic dysfunction seen with tissue Doppler evidence of raise left atrial pressure. 2. Thickened and calcified aortic valve without aortic stenosis or aortic insufficiency. 3. Mild mitral and tricuspid regurgitation. 4. No significant pericardial effusion noted. Electronically signed by : Vick Fagan, 02/03/2020 19:20:32
--- NOTE | 2020-02-03 15:44 | PC.NURSE ---
Dietary called for a tray.
--- NOTE | 2020-02-03 15:48 | PC.NURSE ---
CV lab at bedside
[2020-02-03 15:50] LABS: Microscopic, Urine URINE MICROSCOPIC (MICROSCOPIC)
[2020-02-03 15:52] LABS: Appearance,Urine CLEAR (Clear); Bilirubin,Urine Negative (Negative); Blood, Urine Negative (Negative); Color,Urine YELLOW (Yellow); Glucose,Urine (UA) Negative (Negative); Ketones,Urine Negative (Negative); Leukocyte Esterase,Urine Negative (Negative); Nitrate,Urine POSITIVE (Negative); Protein,Urine Negative (Negative); Specific Gravity, Urine >= 1.030 (1.005-1.030); Urobilinogen,Urine 0.2 EU/dl (0.2)
[2020-02-03 16:04] LABS: Bacteria,Urine 4+ /lpf
--- NOTE | 2020-02-03 16:05 | PC.NURSE ---
Report given to Yumiko Del Rio.
--- NOTE | 2020-02-03 16:09 | PC.NURSE ---
v/s monitors removed so pt can eat.
--- NOTE | 2020-02-03 16:46 | PC.NURSE ---
Pt arrived to floor via stretcher at this time
[2020-02-03 17:52] LABS: POC Glucose,Bedside 110 (70-110)
--- NOTE | 2020-02-03 18:06 | PC.NURSE ---
new admit this shift from ED. Shine cath noted. Is on tele. BLE with 4+ edema. BLE are tender when palpated. Yeast infection/excoriation under bilateral breasts and under panus. Pictures taken and are on chart. No other issues noted.
--- NOTE | 2020-02-03 20:50 | PC.NURSE ---
RT monitored pt during RA sat=80% at rest. Returned pt to 2.5L NC
--- NOTE | 2020-02-03 20:55 | PC.NURSE ---
Pt placed on home BIPAP with 2.5L 02
--- NOTE | 2020-02-03 21:16 | PC.NURSE ---
informed md of need for meds to be ordered. added achs fsbs.
--- NOTE | 2020-02-03 21:29 | HMH.HP ---
*Admission Date: 02/03/20 *Chief complaint: sob *History of present illness: this wf presented to the ed -4-year-old female presenting to the emergency department with swelling and shortness of breath. For the last week she has noticed that her legs and arms are becoming more more swollen. She has difficulty ambulating at home. She does not use a wheelchair or walker. Today she was so fatigued that she was barely able to stand. She is taking Bumex twice daily as prescribed. Does not follow salt restriction or any particular diet. She denies recent illness, fevers, chills, cough, vomiting. She uses submental oxygen at night or as needed when lying flat. Denies recent falls. She has a home health aide who comes 5 days a week, but does not health help overnight summary this is a 64-year-old female presenting to the emergency department with lower extremity swelling, fatigue, generalized weakness. Patient is stable on arrival. She is not significantly hypertensive. Differential diagnoses include volume overload, heart failure exacerbation, electrolyte derangement, coronary ischemia. Plan to obtain CBC, CMP, chest x-ray, EKG, troponin profile, BNP and reassess. Reviewed patient's work-up from a few days ago, her BNP at that time was greater than 4000. Elevated from most recent result of 1000. EKG shows sinus rhythm, low voltage. Also shows QT prolongation at 532, will avoid QT prolonging medications. Chest x-ray shows cardiomegaly and right basilar atelectasis. Patient does not have cough or fever to make me concerned for pneumonia. Laboratory results show creatinine within normal limits at 0.60. VBG shows hypercarbia at 61, this is likely due to patient's body habitus and sleep apnea. She does not have wheezes on exam to make me concerned for COPD. Her BNP is elevated at greater than 4000. Patient given 40 mg of IV Lasix. Order placed for cardiac echo. Patient would benefit for admission for diuresis. May need CPAP at night. pt admitted for eval and treatment [facility] History I have reviewed the patient's past medical history: Yes Medical History: Reports:: Cancer (right breast cancer 2000), Congestive Heart Failure, Diabetes Mellitus Type 2 Denies:: Diabetes Mellitus Type 1, MRSA *Have you ever received a pneumonia vaccine?: No *Have you received a flu vaccine this season?: No Other Medical History: Reports: Anemia, Arthritis Other Surgeries: Yes: Bariatric Surgery, Cardiac Catheterization (2003), Other (skin graft left leg) Amputation: No Fractures: No - *Social History Last grade of school completed: High school graduate Smoking Status: Never smoker Alcohol Intake: never Alcohol Intake Frequency:: other Substance Use Type: denies use *Occupational Status:: disabled Household Members: none *Travel in the last 8 weeks: None Family Hx:: Heart Attack Review of Systems - Review of Systems Review of systems:: pertinent systems reviewed and negative unless documented below - Constitutional Reports fatigue - Eyes Denies change in vision - ENT Denies tongue swelling - *Cardiovascular Reports shortness of breath, Reports shortness of breath with activity, Denies chest pain at rest - *Respiratory Reports cough, Reports shortness of breath - *Gastrointestinal Denies abdominal pain, Denies vomiting - *Genitourinary Denies painful urination, Denies blood in urine - *Musculoskeletal Reports joint pain, Denies joint swelling - Integumentary/Breasts Denies breast lump - *Neurologic Reports abnormal walking, Reports weakness, Denies abnormal speech, Denies frequent falls, Denies fainting - Psychiatric Denies confusion Meds Home Medications Medication Instructions Recorded Confirmed Type Gabapentin 800 mg PO TID 04/28/19 02/03/20 History Omeprazole 20 mg PO BID 04/28/19 02/03/20 History Quetiapine Fumarate 50 - 100 mg PO BID 04/28/19 02/03/20 History Ropinirole HCl 4 - 8 mg PO TID 04/28/19 02/03/20 History
[2020-02-03 21:30] LABS: POC Glucose,Bedside 95 (70-110)
[2020-02-04 04:00] VITALS: BP 135/52; PULSE 71; RESP 17; TEMP 36.6; O2SAT 97
--- NOTE | 2020-02-04 04:29 | PC.NURSE ---
Pt A&OX4. pt c/o of bilateral pain in legs was medicated per MAR. BLE with 4+ edema, legs are very tender to touch. Excoriation bilateral under breast and groin. pt utilized home cpap device while sleeping.
[2020-02-04 05:48] VITALS: BMI 59.1
[2020-02-04 06:10] LABS: POC Glucose,Bedside 92 (70-110)
[2020-02-04 07:30] LABS: Basophils % 0.2 % (0.1-2.0); Eosinophils # 0.1 K/mm3 (0.0-0.4); Hematocrit 28.5 % (37.0-47.0); Hemoglobin 8.1 g/dL (12.2-16.2); Lymphocytes # 0.9 K/mm3 (0.7-4.5); Lymphocytes % 18.5 % (10-50); Mean Corpuscular HGB Conc 28.5 g/dL (31.8-35.4); Mean Corpuscular Volume 77.3 fl (81-99); Mean Platelet Volume 9.3 fl (7.4-10.4); Monocytes # 0.3 K/mm3 (0.1-1.0); Monocytes % 5.7 % (1.7-9.3); Neutrophils # 3.4 K/mm3 (1.8-7.8); Neutrophils % 72.6 % (37.0-80.0); Platelet Count 122 K/mm3 (142-424); Red Blood Count 3.69 M/mm3 (4.20-5.40); Red Cell Distribution Width 18.8 % (11.5-17.5); White Blood Count 4.6 K/mm3 (4.8-10.8)
[2020-02-04 07:32] LABS: Chloride 106 mmol/L (98-107); Potassium 3.4 mmoL/L (3.5-5.1); Sodium 142 mmol/L (136-145)
--- NOTE | 2020-02-04 07:34 | P.CONPHA_ITS ---
[facility] Pharmacy VTE Monitoring - Patient Demographics Admission date: 02/03/20 Report Date: 02/04/20 Time: 07:34 Allergies/Adverse Reactions: Patient Allergies aspirin Allergy (Severe, Verified 04/29/19 07:58) Anaphylaxis Sulfa (Sulfonamide Antibiotics) Adverse Reaction (Verified 04/28/19 23:14) Nausea Height: 1.63 m Weight: 156.943 kg Patient Problems: Current Active Problems Debility (Chronic) Acute exacerbation of CHF (congestive heart failure) (Acute) Hypercarbia (Acute) Super obesity (Acute) - VTE Risk Labs: VTE Related Lab Results Hgb 8.4 g/dL (12.2-16.2) L 02/03/20 14:30 Hct 29.1 % (37.0-47.0) L 02/03/20 14:30 Plt Count 122 K/mm3 (142-424) L 02/03/20 14:30 BUN 10 mg/dl (7-17) 02/03/20 14:30 Creatinine 0.60 mg/dl (0.52-1.04) 02/03/20 14:30 Estimated Creat Clear 48 mL/min (50-200) 02/03/20 14:30 VTE Score: 8 Clinical Trial Participant: No - Prophylaxis VTE Prophylaxis Ordered?: Yes Types of VTE Prophylaxis: IPCS Thigh High, IPCS Knee High
[2020-02-04 07:35] LABS: Anion Gap 7.4 mEq/L (5-15); Blood Urea Nitrogen 10 mg/dl (7-17); Carbon Dioxide 32 mmol/L (22.0-30.0); Creatinine Clearance Estimated 48 mL/min (50-200); Estimated Glomerular Filt Rate 100 ml/min (>60); GFR (African American) 121 ML/MIN (>60)
[2020-02-04 07:36] LABS: Calcium 7.8 mg/dl (8.4-10.2); Glucose 89 mg/dl (74-100)
[2020-02-04 08:00] VITALS: BP 136/60; PULSE 80; RESP 17; TEMP 36.7; O2SAT 95
--- NOTE | 2020-02-04 09:25 | HMH.ACPN2 ---
Internal Medicine - PN: Subj *Date: 02/04/20 *Time: 20:59 Interval history: 64 YOF siting up in bed w/ CPAP in place, she reports SOA and CPAP alows her to rest comfortably. She denies CP Cardiology has seen and rec:: 1. The patient was admitted to the hospital with an acute exacerbation of CHF, diastolic. Her BNP is over 4000. She has gross bilateral lower extremity edema with associated shortness of breath. The patient does need diuresis. We will start her on Lasix 40 mg IV twice daily as well as Aldactone 50 mg p.o. twice daily for diuresis. 2. We will repeat a BMP in the morning. 3. She does deny any chest pain or pressure. She did have an initial troponin which was negative. She has not had any repeat troponin so we will obtain a troponin at this time. 4. Her blood pressure is well controlled. 5. Her LDL goal is less than 100. 6. Her echocardiogram shows a preserved ejection fraction with diastolic dysfunction and mild MR. We will continue to diurese the patient as mentioned above. 7. The patient is anemic. Will defer management of this to her primary care provider. 8. She is hypokalemic. Adding Aldactone as mentioned above should help with replacement of her potassium as well. 9. Further recommendations will be made pending the patient's response to treatment. Patient discussed with Dr. Car. All recommendations and orders per Dr. Car. Exam Vital signs and Labs for Last 24 Hours: Temp Pulse Resp BP Pulse Ox 97.9 F 71 17 135/52 L 97 02/04/20 04:00 02/04/20 04:00 02/04/20 04:00 02/04/20 04:00 02/04/20 04:00 Laboratory Results - last 24 hr 02/03/20 12:41: VBG pH 7.25 L, VBG pCO2 61.5 H, VBG pO2 138.7 H, VBG HCO3 26.5, VBG Total CO2 28.4 H, VBG O2 Saturation 98.6 H, VBG Base Excess -0.6 02/03/20 14:30: WBC 4.2 L, RBC 3.79 L, Hgb 8.4 L, Hct 29.1 L, MCV 76.8 L, MCH 22.1 L, MCHC 28.8 L, RDW 18.7 H, Plt Count 122 L, MPV 10.0, Neut % (Auto) 69.5, Lymph % (Auto) 20.9, Graham % (Auto) 5.6, Eos % (Auto) 3.3, Baso % (Auto) 0.6, Neut # (Auto) 2.9, Lymph # (Auto) 0.9, Graham # (Auto) 0.2, Eos # (Auto) 0.1, Baso # (Auto) 0.0 02/03/20 14:30: Sodium 144, Potassium 3.5, Chloride 108 H, Carbon Dioxide 31 H, Anion Gap 8.5, BUN 10, Creatinine 0.60, Estimated Creat Clear 48, Estimated GFR 100, Est GFR ( Amer) 121, Glucose 95, Calcium 8.3 L, Total Bilirubin 0.5, AST 17, ALT 8 L, Alkaline Phosphatase 95, Troponin I < 0.01, NT-Pro-B Natriuret Pep 4180 H, Total Protein 6.5, Albumin 3.3 L, Globulin 3.2, Albumin/Globulin Ratio 1.0 L 02/03/20 15:36: Urine Color Yellow, Urine Appearance Clear, Urine pH 6.0, Ur Specific Hawks >= 1.030, Urine Protein Negative, Urine Glucose (UA) Negative, Urine Ketones Negative, Urine Blood Negative, Urine Nitrate Positive, Urine Bilirubin Negative, Urine Urobilinogen 0.2, Ur Leukocyte Esterase Negative, Urine RBC 3-5, Urine WBC 10-20, Ur Squamous Epith Cells 3-5, Urine Bacteria 4+ 02/03/20 17:15: POC Glucose 110 02/03/20 20:54: POC Glucose 95 02/04/20 05:10: POC Glucose 92 02/04/20 06:50: WBC 4.6 L, RBC 3.69 L, Hgb 8.1 L, Hct 28.5 L, MCV 77.3 L, MCH 22.0 L, MCHC 28.5 L, RDW 18.8 H, Plt Count 122 L, MPV 9.3, Neut % (Auto) 72.6, Lymph % (Auto) 18.5, Graham % (Auto) 5.7, Eos % (Auto) 3.0, Baso % (Auto) 0.2, Neut # (Auto) 3.4, Lymph # (Auto) 0.9, Graham # (Auto) 0.3, Eos # (Auto) 0.1, Baso # (Auto) 0.0 02/04/20 06:50: Sodium 142, Potassium 3.4 L, Chloride 106, Carbon Dioxide 32 H, Anion Gap 7.4, BUN 10, Creatinine 0.60, Estimated Creat Clear 48, Estimated GFR 100, Est GFR ( Amer) 121, Glucose 89, Calcium 7.8 L I & O for Last 24 hours: Intake & Output 02/01/20 02/02/20 02/03/20 02/04/20 23:59 23:59 23:59 23:59 Intake Total 240 / 240 Output Total 1000 / 2450 1450 / 1450 Balance -760 / -2210 -1450 / -1450 Weight 352 lb 9 oz 346 lb Microbiology Reports for the Last 24 Hours: Microbiology 02/03/20 15:36 Urine,Catheterized Urine Culture - Preliminary
--- NOTE | 2020-02-04 10:12 | HMH.CNCARD ---
History of Present Illness Consult date: 02/04/20 Requesting physician: Neptali Gaines Consult reason: congestive heart failure, shortness of breath Chief complaint: edema, sob History of present illness: This is a 64-year-old white female who presented to the emergency department with lower extremity edema, shortness of breath and fatigue. She states that she has been having worsening lower extremity edema for about 1 month. She states that she has a PA that comes to her home to see her and she has been reporting the lower extremity edema with no change in her medications. The patient states that she takes Bumex 1 mg twice daily at home for the chronic edema she has. But despite being on these medications her edema continued to worsen. On her own she increased her Bumex to 2 mg twice a day with no improvement in her edema. She states that her lower extremity edema is associated with profound shortness of breath, fatigue and weakness. She states that she was so weak that she was unable to stand and was having difficult difficulty with ambulation. The patient states that she does follow salt restrictions and fluid restrictions at home and despite these restrictions her edema continued to worsen. She does report using supplemental oxygen at night and as needed when she is lying down. Initial troponin is negative. She did not have a second troponin at this time. Her echocardiogram shows preserved LV function with diastolic dysfunction. She is most likely having an acute exacerbation of diastolic congestive heart failure. The patient did diurese well with a dose of IV Lasix in the emergency department. She denies any chest pain or pressure. She denies any fever, chills, nausea, vomiting, diarrhea. Her shortness of breath is associated with PND and orthopnea as well. Of note she does see a anesthesiology technologist Dr. Chao. She states that she did have a heart cath several years ago which showed normal coronary arteries. [facility] History I have reviewed the patient's past medical history: Yes Medical History: Reports:: Cancer (right breast cancer 2000), Congestive Heart Failure, Diabetes Mellitus Type 2, Hyperlipidemia Denies:: Diabetes Mellitus Type 1, MRSA *Have you ever received a pneumonia vaccine?: No *Have you received a flu vaccine this season?: No Other Medical History: Reports: Anemia, Arthritis Other Surgeries: Yes: Bariatric Surgery, Cardiac Catheterization (2003), Other (skin graft left leg) Amputation: No Fractures: No - *Social History Last grade of school completed: High school graduate Smoking Status: Never smoker Alcohol Intake: never Alcohol Intake Frequency:: other Substance Use Type: denies use *Occupational Status:: disabled Household Members: none *Travel in the last 8 weeks: None Family Hx:: Heart Attack Meds Home Medications Medication Instructions Recorded Confirmed Type Gabapentin 800 mg PO TID 04/28/19 02/03/20 History Omeprazole 20 mg PO BID 04/28/19 02/03/20 History Quetiapine Fumarate 50 - 100 mg PO BID 04/28/19 02/03/20 History Ropinirole HCl 4 - 8 mg PO TID 04/28/19 02/03/20 History Simvastatin 10 mg PO HS 04/28/19 02/03/20 History Tizanidine HCl 2 mg PO HS 04/28/19 02/03/20 History Venlafaxine HCl [Venlafaxine HCl 150 mg PO BID 04/28/19 02/03/20 History ER] allopurinoL [Allopurinol 100mg 100 mg PO DAILY 04/29/19 02/03/20 History tablet] atenoloL [Atenolol 25mg Tab] 25 mg PO DAILY 04/29/19 02/03/20 History Ferrous Sulfate [Ferrous Sulfate 325 mg PO DAILY 09/17/19 02/03/20 History 325mg Tablet] Nystatin [Nystatin Topical Powder 0 gm TP TID 09/17/19 02/03/20 History 30GM*] Bumetanide [Bumex 1mg tablet] 1 mg PO BID 02/03/20 02/03/20 History Diclofenac Sodium [Diclo Gel] 1 each TP QID 02/03/20 02/03/20 History Ibuprofen [Ibuprofen 600mg 600 mg PO Q6H 02/03/20 02/03/20 History Tablet] Loratadine [Allergy] 10 mg PO HS 02/03/20 02/03/20 History Oxycodone HCl/Acetaminophen 1 each PO QID PRN 07
--- NOTE | 2020-02-04 10:34 | SW/DCPLANNER ---
I have spoke with this patient regarding discharge plans. Patient stated that she resides at home alone but has neighbors and daughter that checks on her often. Patient receives services from [facility] for 5 days a week and 8 hours a day. Patient also receives services from [facility] and they are aware that patient is at [facility]. Patient has a rollator walker and a new electric wheelchair. Patient has home O2 for nighttime use thru [facility]. Patient will have PT/OT evaluation today.
[2020-02-04 11:12] LABS: Troponin I < 0.01 ng/ml (0.00-0.034)
--- NOTE | 2020-02-04 11:42 | HMH.PHAINT ---
HOME MEDICATION RECONCILIATION COMPLETED USING LIST FROM [facility] AND PT INTERVIEW
[2020-02-04 12:00] VITALS: BP 140/69; PULSE 67; RESP 17; TEMP 36.8; O2SAT 93
--- NOTE | 2020-02-04 13:45 | HMH.PTEV ---
Physical Therapy Evaluation Rehab PT IP Evaluation Start: 02/04/20 12:18 Freq: ONCE Status: Active Protocol: Document 02/04/20 13:39 DELFINA (Rec: 02/04/20 13:45 PWMAIRO [id number]) Subjective/History History History This is the initial IP PT evaluation for Brittany Sanchez . Pt is a 64 y/o female admtited thru ER. Pt reports to ER w/ c/o fluid retention and SOA for ~ the last week. Pt rpeorts increased swelling in BLE thighs, abdomen and breasts. Pt lives in single story apartment by herself but has HH aide, nursing and PA, as well as daughter on weekends and neighbor in evening. Pt uses rollator to motivate at home and supplemental O2 at night in BPAP Subjective Subjective pt reports minimal c/o SOA w/ exertion Rehab PT IP Eval Objective Appearance Patient Behavior Appropriate,Cooperative Patient Orientation Person,Place,Time Difficulty following instructions none Speech Pattern Clear,Appropriate Ambulation Patient Able to Ambulate Yes Ambulation Observation IP General Gait Pattern Observation Shuffling Step Ambulation Distance (feet) 25 Ambulation Assistive Device Rolling Walker Ambulation Ability Independent Balance Ability to Arise Able, uses arms to help Sitting Balance Steady, safe Standing Balance Steady, wide stance Dynamic Sitting Balance Ability Fair Transfers Bed Transfer Ability Independent Chair Transfer Ability Independent Sit to Stand Bed Transfer Ability Supervision/Stand by Rehab PT IP prob,goals,plan Problems Date of Evaluation: 02/04/20 PT IP Problems Gait Rehab Potential Rehab Potential Good Equipment Needs Assistive Devices Rolling / Wheeled Walker Plan PT Intervention Plan Bed Mobility,Transfers,Gait, Therapeutic Exercise PT Plan Frequency BID Duration LOS Discharge Goals Bed Transfer Ability Independent Sit to Stand Chair Transfer Ability Independent Ambulation Assistive Device Rolling Walker Ambulation Distance (feet) 25 Discharge Plan PT Discharge Plan pt to return home w/ HH
[2020-02-04 15:27] VITALS: BMI 59.1
--- NOTE | 2020-02-04 15:56 | PC.NURSE ---
pt has reported pain in bilateral legs and back. md office notified and message left. pt requesting home pain medication be reordered. pt was a standby assist with physical therapy. sitting up in chair. pt has put out 2625 since lasix given earlier. pt reports feeling less soa since this. pt is on room air at this time. new iv placed today. tsai draining clear urine. call light in reach. nonskids on. will continue to monitor pt condition
[2020-02-04 16:00] VITALS: BP 138/54; PULSE 70; RESP 19; TEMP 36.8; O2SAT 95
--- NOTE | 2020-02-04 16:11 | PC.NURSE ---
Received report from Dania Gurrola RN on pt.
[2020-02-04 17:26] LABS: POC Glucose,Bedside 111 (70-110)
[2020-02-04 17:26] LABS: POC Glucose,Bedside 85 (70-110)
--- NOTE | 2020-02-04 19:10 | PC.NURSE ---
report given to jimenez
[2020-02-04 20:00] VITALS: BP 133/63; PULSE 74; RESP 18; TEMP 36.8; O2SAT 95
[2020-02-04 22:40] LABS: POC Glucose,Bedside 99 (70-110)
--- NOTE | 2020-02-05 01:53 | PC.NURSE ---
Pt has her own cpap with 2.5 lpm O2 in line. Pt's room air sat at rest = 88%.
[2020-02-05 04:00] VITALS: BP 121/67; PULSE 74; RESP 18; TEMP 36.8; O2SAT 93
--- NOTE | 2020-02-05 04:21 | PC.NURSE ---
A&OX4. PT TOLERATING CPAP MAJORITY OF THIS SHIFT WHILE RESTING IN BED. PT HAS SLEPT T/O MAJORITY OF SHIFT. PT HAS C/O PAIN IN HER BLE X1 THIS SHIFT. REQUESTED PRN PAIN MED PER SEP. ON REASSESSMENT, PT RESTING IN BED WITH EYES CLOSED. PT HAS HAD NO OTHER C/O THUS FAR. PT TOLERATED BED BATH THIS SHIFT. F/C PRESENT DRAINING BRIGHT YELLOW URINE. VSS WILL CONTINUE TO MONITOR.
[2020-02-05 04:43] VITALS: BMI 56.9
[2020-02-05 05:32] LABS: POC Glucose,Bedside 94 (70-110)
[2020-02-05 06:37] LABS: Chloride 100 mmol/L (98-107); Potassium 3.1 mmoL/L (3.5-5.1); Sodium 140 mmol/L (136-145)
[2020-02-05 06:40] LABS: Anion Gap 7.1 mEq/L (5-15); Blood Urea Nitrogen 11 mg/dl (7-17); Calcium 7.7 mg/dl (8.4-10.2); Carbon Dioxide 36 mmol/L (22.0-30.0); Creatinine Clearance Estimated 48 mL/min (50-200); Estimated Glomerular Filt Rate 100 ml/min (>60); GFR (African American) 121 ML/MIN (>60); Glucose 94 mg/dl (74-100)
--- NOTE | 2020-02-05 07:43 | HMH.PNCARD ---
Subjective Date: 02/05/20 Time: 07:44 Principal diagnosis: CHF Interval history: 64 yo WF in Bed in NAD. Persistent cough noted throughout visit. Pt states this has been ongoing for about 3-4 months and typically occurs with eating or drinking. History of pneumonia last year. Breathing has improved but still not to baseline. She relates edema of legs has improved some also. Denies any chest pain. Exam Vital signs and Labs for Last 24 Hours: Temp Pulse Resp BP Pulse Ox 98.3 F 74 18 121/67 93 L 02/05/20 04:00 02/05/20 04:00 02/05/20 04:00 02/05/20 04:00 02/05/20 04:00 Laboratory Results - last 24 hr 02/04/20 10:37: Troponin I < 0.01 02/04/20 11:43: POC Glucose 85 02/04/20 16:32: POC Glucose 111 H 02/04/20 22:10: POC Glucose 99 02/05/20 05:17: POC Glucose 94 02/05/20 05:39: Sodium 140, Potassium 3.1 L, Chloride 100, Carbon Dioxide 36 H, Anion Gap 7.1, BUN 11, Creatinine 0.60, Estimated Creat Clear 48, Estimated GFR 100, Est GFR ( Amer) 121, Glucose 94, Calcium 7.7 L I & O for Last 24 hours: Intake & Output 02/02/20 02/03/20 02/04/20 02/05/20 11:59 11:59 11:59 11:59 Intake Total 480 / 480 410 / 410 Output Total 2875 / 2875 4925 / 4925 Balance -2395 / -2395 -4515 / -4515 Weight 346 lb 333 lb 5 oz Microbiology Reports for the Last 24 Hours: Microbiology 02/03/20 15:36 Urine,Catheterized Urine Culture - Final Klebsiella pneumoniae - *Routine HEENT Exam Head: Present: normocephalic Eye: Present: EOMI, PERRL ENT: Present: mucous membranes moist - *Routine Neck Exam Present: supple. Absent: JVD, carotid bruit - *Routine Respiratory Exam Present: CTA bilaterally, diminished air movement. Absent: accessory muscle use, rales, rhonchi, wheezes - *Routine Cardiovascular Exam Present: RRR. Absent: murmur, gallop, rubs - *Routine Abdominal Exam Present: soft. Absent: tenderness, distended, guarding - *Routine Extremities Exam Present: edema. Absent: calf tenderness - *Routine Neurological Exam Present: alert, oriented X3, moving all extremities Progress Note: A&P (1) Morbid obesity Status: Chronic Current Visit: No (2) Pickwickian syndrome Status: Chronic Current Visit: No (3) Bilateral lower extremity edema Status: Acute Current Visit: No (4) Chronic acquired lymphedema Status: Acute Current Visit: No (5) Acute exacerbation of CHF (congestive heart failure) Status: Acute Current Visit: Yes (6) Shortness of breath Status: Acute Current Visit: Yes (7) Hyperlipidemia Status: Acute Current Visit: Yes (8) UTI (urinary tract infection), bacterial Status: Acute Current Visit: Yes (9) Hypocalcemia Status: Acute Current Visit: Yes (10) Elevated brain natriuretic peptide (BNP) level Status: Acute Current Visit: Yes (11) Diabetes Status: Acute Current Visit: Yes (12) Anemia Status: Acute Current Visit: Yes Assessment and Plan for All Diagnoses:: 1. CHF, continue IV lasix and PO spironolactone until BUN/Cr are elevated above normal range. Anticipate another 24-48 hrs inpatient. Pt has had almost 7 liters of fluid output in the last 24 hrs. 2. Hypokalemia, increase replacement 3. Concern for aspiration, will get swallowing evaluation 4. Morbid obesity/pickwickian syndrome 5. DM type 2 6. UTI, on Abx 7. Chronic anemia, stable since 04/2019
[2020-02-05 08:00] VITALS: BP 149/66; PULSE 79; RESP 20; TEMP 37; O2SAT 97
--- NOTE | 2020-02-05 11:03 | HMH.SLDYSPHA ---
Speech & Language Evaluation Speech/Language Dysphagia Evaluation Start: 02/05/20 10:51 Freq: ONCE Status: Active Protocol: Document 02/05/20 10:51 TORY (Rec: 02/05/20 11:03 TORY [id number]) Dysphagia Assess/Goals/Plan Assessment Date of Evaluation: 02/05/20 Evaluation Type Initial Certification Assessment/Problems Coughing after eating and drinking Does Patient Qualify for Service No Qualify/Failure Comment Change of diet recommended and at this time, therapy is not warranted. Recommendations PHYSICIAN CERTIFICATION: The specified therapy services are required, authorized, and reviewed every 30 days. Diet Recommendations Mechanical Soft Liquid Type Recommendations Normal/Thin Dysphagia Swallow Precautions/Strategies Sitting Upright (90 deg),Small Bites and Sips,Alternate Liquids/Solids Plan Pt/Guardian verbally ack understanding Yes of dx/prognosis/goals G -code Required No General Information General Current Food Consistancy Regular,Thin Liquids Dentition Edentulous Oxygen Status Nasal Cannula Facial Symmetry Symmetrical Patient Orientation Person,Place,Time Ability to Follow Directions Excellent Communication Ability No Impairment Dysphagia:Food Presentation Evaluation Food Type Mechanical Soft,Liquid,Pudding Dysphagia Evaluation Summary Ms. Sanchez was given the following consistencies: thins via straw and open cup, pudding, and mechanical soft. No signs of dysphagia were noted. At this time, it is recommended that she be placed on mechanical chopped diet due to lack of dentition with thin liquids. Speech therapy is not warranted at this time. Stroke Dysphagia Assessment PHYSICIAN CERTIFICATION: I certify the specified therapy services for Brittany Sanchez are required, authorized, and reviewed every 30 days.
[2020-02-05 16:00] VITALS: BP 130/79; PULSE 77; RESP 19; TEMP 37.2; O2SAT 100
[2020-02-05 17:11] LABS: POC Glucose,Bedside 109 (70-110)
[2020-02-05 17:11] LABS: POC Glucose,Bedside 118 (70-110)
--- NOTE | 2020-02-05 18:04 | HMH.ACPN2 ---
Internal Medicine - PN: Subj *Date: 02/05/20 *Time: 18:15 Interval history: Patient had an uneventful night, has diuresed well. Less dyspnea, good appetite. Cardiol notes reviewed. IV lasix/po aldactone echo revd admission cxr revd she is pleased with her care Exam Vital signs and Labs for Last 24 Hours: Temp Pulse Resp BP Pulse Ox 98.6 F 79 20 149/66 H 97 02/05/20 08:00 02/05/20 08:00 02/05/20 08:00 02/05/20 08:00 02/05/20 08:00 Laboratory Results - last 24 hr 02/04/20 22:10: POC Glucose 99 02/05/20 05:17: POC Glucose 94 02/05/20 05:39: Sodium 140, Potassium 3.1 L, Chloride 100, Carbon Dioxide 36 H, Anion Gap 7.1, BUN 11, Creatinine 0.60, Estimated Creat Clear 48, Estimated GFR 100, Est GFR ( Amer) 121, Glucose 94, Calcium 7.7 L 02/05/20 11:35: POC Glucose 118 H 02/05/20 16:55: POC Glucose 109 I & O for Last 24 hours: Intake & Output 02/02/20 02/03/20 02/04/20 02/05/20 23:59 23:59 23:59 23:59 Intake Total 240 / 240 650 / 650 720 / 720 Output Total 1000 / 2450 4500 / 6500 5925 / 5925 Balance -760 / -2210 -3850 / -5850 -5205 / -5205 Weight 352 lb 9 oz 345 lb 14.484 oz 333 lb 5 oz Microbiology Reports for the Last 24 Hours: Microbiology 02/03/20 15:36 Urine,Catheterized Urine Culture - Final Klebsiella pneumoniae - Constitutional no acute distress, obese, chronically ill appearing - *Routine HEENT Exam Head: Present: normocephalic, atraumatic Eye: Absent: conjunctival icterus ENT: Present: mucous membranes moist - *Routine Neck Exam Present: supple, trachea midline. Absent: tracheal deviation - *Routine Respiratory Exam Present: rales. Absent: accessory muscle use, respiratory distress - *Routine Cardiovascular Exam Present: RRR. Absent: murmur - *Routine Abdominal Exam Present: soft. Absent: tenderness - *Routine Extremities Exam Present: edema. Absent: cyanosis, pallor, extremity cold to touch (old trauma w/graft left ant calf) - *Routine Skin Exam Present: intact, scars. Absent: cyanosis - *Routine Neurological Exam Present: alert, oriented X3 - Routine Psychiatric Exam Present: normal affect Assessment and Plan (1) Morbid obesity Current visit: No Status: Chronic Category: Medical Code(s): E66.01 - Morbid (severe) obesity due to excess calories (2) Pickwickian syndrome Current visit: No Status: Chronic Category: Medical Code(s): E66.2 - Morbid (severe) obesity with alveolar hypoventilation (3) Bilateral lower extremity edema Current visit: No Status: Acute Category: Medical Code(s): R60.0 - Localized edema (4) Chronic acquired lymphedema Current visit: No Status: Acute Category: Medical Code(s): I89.0 - Lymphedema, not elsewhere classified (5) Acute exacerbation of CHF (congestive heart failure) Current visit: Yes Status: Acute Qualifiers: Heart failure type: unspecified Qualified Code(s): I50.9 - Heart failure, unspecified Category: Medical Code(s): I50.9 - Heart failure, unspecified (6) Shortness of breath Current visit: Yes Status: Acute Category: Medical Code(s): R06.02 - Shortness of breath (7) Hyperlipidemia Current visit: Yes Status: Acute Category: Medical Code(s): E78.5 - Hyperlipidemia, unspecified (8) UTI (urinary tract infection), bacterial Current visit: Yes Status: Acute Category: Medical Code(s): N39.0 - Urinary tract infection, site not specified; A49.9 - Bacterial infection, unspecified (9) Hypocalcemia Current visit: Yes Status: Acute Category: Medical Code(s): E83.51 - Hypocalcemia (10) Elevated brain natriuretic peptide (BNP) level Current visit: Yes Status: Acute Category: Medical Code(s): R79.89 - Other specified abnormal findings of blood chemistry (11) Diabetes Current visit: Yes Status: Acute Qualifiers: Diabetes mellitus type: type 1 Diabetes mellitus complic
[2020-02-05 19:24] VITALS: BP 121/57; PULSE 81; RESP 18; TEMP 36.9; O2SAT 100
--- NOTE | 2020-02-05 20:19 | PC.NURSE ---
Pt's room air sat at rest = 88%. Rt placed pt back on 2.5 lpm O2 as this is what she says she wears at home.
[2020-02-05 20:58] LABS: POC Glucose,Bedside 118 (70-110)
--- NOTE | 2020-02-05 23:14 | PC.NURSE ---
ABG done on room air. Did not cross over to computer. Results are PH 7.49, pCO2 28.6, pO2 70.9, HCO3 21.1, BE -2.4, ctCo2 21.9, sO2 93.2 Results called to Dinesh PAGAN
[2020-02-06 04:57] VITALS: BP 132/66; PULSE 79; RESP 16; TEMP 36.4; O2SAT 91
[2020-02-06 04:59] VITALS: BMI 54.4
--- NOTE | 2020-02-06 05:00 | PC.NURSE ---
URINE NOTED CLEAR AND PALE YELLOW, PER [facility].
[2020-02-06 05:47] LABS: POC Glucose,Bedside 93 (70-110)
[2020-02-06 06:27] LABS: Basophils % 0.2 % (0.1-2.0); Eosinophils # 0.2 K/mm3 (0.0-0.4); Eosinophils % 3.4 % (0.1-12.0); Hemoglobin 8.5 g/dL (12.2-16.2); Lymphocytes % 19.3 % (10-50); Mean Corpuscular HGB Conc 29.4 g/dL (31.8-35.4); Mean Corpuscular Hemoglobin 22.1 pg (27.0-31.2); Mean Corpuscular Volume 75.1 fl (81-99); Mean Platelet Volume 8.8 fl (7.4-10.4); Monocytes # 0.4 K/mm3 (0.1-1.0); Monocytes % 6.8 % (1.7-9.3); Neutrophils # 3.8 K/mm3 (1.8-7.8); Neutrophils % 70.3 % (37.0-80.0); Platelet Count 148 K/mm3 (142-424); Red Blood Count 3.87 M/mm3 (4.20-5.40); Red Cell Distribution Width 18.7 % (11.5-17.5); White Blood Count 5.4 K/mm3 (4.8-10.8)
[2020-02-06 06:38] LABS: Chloride 97 mmol/L (98-107); Potassium 3.6 mmoL/L (3.5-5.1); Sodium 140 mmol/L (136-145)
[2020-02-06 06:41] LABS: Anion Gap 6.6 mEq/L (5-15); Blood Urea Nitrogen 11 mg/dl (7-17); Calcium 7.7 mg/dl (8.4-10.2); Creatinine Clearance Estimated 48 mL/min (50-200); Estimated Glomerular Filt Rate 100 ml/min (>60); GFR (African American) 121 ML/MIN (>60); Glucose 88 mg/dl (74-100)
[2020-02-06 06:49] LABS: Carbon Dioxide 40 mmol/L (22.0-30.0)
[2020-02-06 08:00] VITALS: BP 132/73; PULSE 87; RESP 18; TEMP 36.9; O2SAT 95
--- NOTE | 2020-02-06 10:20 | HMH.PNCARD ---
Subjective Date: 02/06/20 Time: 10:20 Principal diagnosis: CHF Interval history: 64-year-old white female in bed in no acute distress. Some fatigue which is likely related to the greater than 14 liter output that she has experienced in the last 2-3 days. Exam Vital signs and Labs for Last 24 Hours: Temp Pulse Resp BP Pulse Ox 98.4 F 87 18 132/73 95 02/06/20 08:00 02/06/20 08:00 02/06/20 08:00 02/06/20 08:00 02/06/20 08:00 Laboratory Results - last 24 hr 02/05/20 11:35: POC Glucose 118 H 02/05/20 16:55: POC Glucose 109 02/05/20 20:36: POC Glucose 118 H 02/06/20 05:33: POC Glucose 93 02/06/20 05:44: WBC 5.4, RBC 3.87 L, Hgb 8.5 L, Hct 29.0 L, MCV 75.1 L, MCH 22.1 L, MCHC 29.4 L, RDW 18.7 H, Plt Count 148, MPV 8.8, Neut % (Auto) 70.3, Lymph % (Auto) 19.3, [place] % (Auto) 6.8, Eos % (Auto) 3.4, Baso % (Auto) 0.2, Neut # (Auto) 3.8, Lymph # (Auto) 1.0, [place] # (Auto) 0.4, Eos # (Auto) 0.2, Baso # (Auto) 0.0 02/06/20 05:44: Sodium 140, Potassium 3.6, Chloride 97 L, Carbon Dioxide 40 H, Anion Gap 6.6, BUN 11, Creatinine 0.60, Estimated Creat Clear 48, Estimated GFR 100, Est GFR ( Amer) 121, Glucose 88, Calcium 7.7 L I & O for Last 24 hours: Intake & Output 02/03/20 02/04/20 02/05/20 02/06/20 11:59 11:59 11:59 11:59 Intake Total 480 / 480 890 / 890 960 / 960 Output Total 2875 / 2875 7675 / 7675 5505 / 5505 Balance -2395 / -2395 -6785 / -6785 -4545 / -4545 Weight 346 lb 333 lb 5 oz 318 lb 12.615 oz Microbiology Reports for the Last 24 Hours: Microbiology 02/03/20 15:36 Urine,Catheterized Urine Culture - Final Klebsiella pneumoniae - *Routine HEENT Exam Head: Present: normocephalic Eye: Present: EOMI, PERRL ENT: Present: mucous membranes moist - *Routine Respiratory Exam Present: CTA bilaterally. Absent: accessory muscle use, rales, rhonchi, wheezes - *Routine Cardiovascular Exam Present: RRR. Absent: murmur, gallop, rubs - *Routine Extremities Exam Present: edema. Absent: calf tenderness - *Routine Neurological Exam Present: alert, oriented X3, moving all extremities Progress Note: A&P (1) Morbid obesity Status: Chronic Current Visit: No (2) Pickwickian syndrome Status: Chronic Current Visit: No (3) Bilateral lower extremity edema Status: Acute Current Visit: No (4) Chronic acquired lymphedema Status: Acute Current Visit: No (5) Acute exacerbation of CHF (congestive heart failure) Status: Acute Current Visit: Yes (6) Shortness of breath Status: Acute Current Visit: Yes (7) Hyperlipidemia Status: Acute Current Visit: Yes (8) UTI (urinary tract infection), bacterial Status: Acute Current Visit: Yes (9) Hypocalcemia Status: Acute Current Visit: Yes (10) Elevated brain natriuretic peptide (BNP) level Status: Acute Current Visit: Yes (11) Diabetes Status: Acute Current Visit: Yes (12) Anemia Status: Acute Current Visit: Yes Assessment and Plan for All Diagnoses:: 1. Diastolic congestive heart failure with significant diuresis on IV Lasix and p.o. spironolactone. 2. Hypokalemia, corrected 3. Morbid obesity/pickwickian syndrome 4. Diabetes mellitus 5. Chronic anemia Patient could be discharged home from cardiology standpoint. Home medication recommendations: Lasix 40 mg p.o. twice daily Spironolactone 50 mg p.o. twice daily Potassium chloride 40 mEq twice daily Atenolol 25 mg daily Simvastatin 10 mg daily Recommend BMP next week to assess renal and potassium status Follow-up with us in 2 weeks or sooner if needed
[2020-02-06 11:28] LABS: POC Glucose,Bedside 97 (70-110)
--- NOTE | 2020-02-06 12:20 | HMH.DCSUM ---
General - General Admission date:: 02/03/20 Discharge date: 02/06/20 HPI HPI: this wf presented to the ed -4-year-old female presenting to the emergency department with swelling and shortness of breath. For the last week she has noticed that her legs and arms are becoming more more swollen. She has difficulty ambulating at home. She does not use a wheelchair or walker. Today she was so fatigued that she was barely able to stand. She is taking Bumex twice daily as prescribed. Does not follow salt restriction or any particular diet. She denies recent illness, fevers, chills, cough, vomiting. She uses submental oxygen at night or as needed when lying flat. Denies recent falls. She has a home health aide who comes 5 days a week, but does not health help overnight summary this is a 64-year-old female presenting to the emergency department with lower extremity swelling, fatigue, generalized weakness. Patient is stable on arrival. She is not significantly hypertensive. Differential diagnoses include volume overload, heart failure exacerbation, electrolyte derangement, coronary ischemia. Plan to obtain CBC, CMP, chest x-ray, EKG, troponin profile, BNP and reassess. Reviewed patient's work-up from a few days ago, her BNP at that time was greater than 4000. Elevated from most recent result of 1000. EKG shows sinus rhythm, low voltage. Also shows QT prolongation at 532, will avoid QT prolonging medications. Chest x-ray shows cardiomegaly and right basilar atelectasis. Patient does not have cough or fever to make me concerned for pneumonia. Laboratory results show creatinine within normal limits at 0.60. VBG shows hypercarbia at 61, this is likely due to patient's body habitus and sleep apnea. She does not have wheezes on exam to make me concerned for COPD. Her BNP is elevated at greater than 4000. Patient given 40 mg of IV Lasix. Order placed for cardiac echo. Patient would benefit for admission for diuresis. May need CPAP at night. pt admitted for eval and treatment Hospital Course Hospital Course: Patient is a 64-year-old female who was admitted with submitted with significant congestive and marked dyspnea. She was she was also found to have a UTI which cultured klebsiella pneumonia. She was followed by the cardiology service and workup included an echo. Diuresis was achieved via iv lasix and po aldactone. Total output about 14 liters, with relief of dyspnea. Diastolic dysfunction noted on echo. Report as follows Conclusion 1. Biatrial enlargement, normal left ventricular size, mild concentric left ventricular hypertrophy, visually estimated ejection fraction 55% with no regional wall motion abnormality, grade 1 diastolic dysfunction seen with tissue Doppler evidence of raise left atrial pressure. 2. Thickened and calcified aortic valve without aortic stenosis or aortic insufficiency. 3. Mild mitral and tricuspid regurgitation. 4. No significant pericardial effusion noted. The klebsiella is sensitive to cipro and we will discharge on a home regimen. She does have anemia with hgb=8.5 We discussed this and will workup as an outpatient She had a remote colonoscopy at [facility], denies signs of gi blood loss. She is advised to have this addressed at follow up. Objective Vital signs: Temp Pulse Resp BP Pulse Ox 98.4 F 87 18 132/73 95 02/06/20 08:00 02/06/20 08:00 02/06/20 08:00 02/06/20 08:00 02/06/20 08:00 no acute distress, morbidly obese - *Routine HEENT Exam Head: Present: normocephalic, atraumatic Eye: Absent: conjunctival icterus, periorbital ecchymosis ENT: Present: mucous membranes moist - *Routine Neck Exam Present: supple. Absent: tenderness, swelling - *Routine Respiratory Exam Present: CTA bilaterally, rales. Absent: accessory muscle use Comments: much improved - *Routine Cardiovascular Exam Present: RRR, Normal S1, Normal S2. Absent: murmur - *Routi
--- NOTE | 2020-02-06 13:31 | SW/DCPLANNER ---
Addendum entered by Kaylene Hernández 02/06/20 14:08: FAXED PATIENT INFORMATION TO [facility], SPOKE WITH MAE.... Original Note: SET UP TRANSPORTATION FOR THIS PATIENT TO GO BACK TO HER HOME WITH [employer].. WILL CONTACT HOME [facility]ALTH AND INFORM THEM THAT SHE IS DISCHARGING FOR HER SERVICES TO [facility].....
--- NOTE | 2020-02-06 13:50 | HMH.PHAINT ---
DISCHARGE COUNSELING COMPLETED ON PATIENT. NEW PRESCRIPTIONS INCLUDE CIPROFLOXACIN, FUROSEMIDE, SPIRONOLACTONE, AND A DOSE CHANGE WITH POTASSIUM. ALL NEW PRESCRIPTIONS WERE SENT TO [facility] IN [place]. PATIENT IS TO CONTINUE ALL OTHER HOME MEDICATIONS WITH THE EXCEPTION OF TIZANIDINE, IBUPROFEN, AND BUMEX. ALL QUESTIONS WERE ANSWERED AND PATIENT VERBALIZED UNDERSTANDING. -HAILEE WINKLER, JESSICAD
== END 2020-02-06 16:09 | disposition home health service (06) ==
LOC: ER 12:53 → 2ND 15:34
PROVIDERS: Family Medicine; Nurse Practitioner Family; Admitting Provider Emergency Medicine; Emergency Provider Emergency Medicine; Visit Provider Emergency Medicine
DX: I50.31 Acute diastolic (congestive) heart failure (principal); N39.0 Urinary tract infection, site not specified; D64.9 Anemia, unspecified; Z68.43 Body mass index [BMI] 50.0-59.9, adult; E66.2 Morbid (severe) obesity with alveolar hypoventilation; I89.0 Lymphedema, not elsewhere classified; E87.6 Hypokalemia; E11.9 Type 2 diabetes mellitus without complications; Z79.899 Other long term (current) drug therapy; Z88.8 Allergy status to other drugs, medicaments and biological substances; Z88.2 Allergy status to sulfonamides; E83.51 Hypocalcemia
CPT/HCPCS: 36415; 71045; 80048; 80053; 81001; 82803; 82962; 83880; 84484; 85025; 87086; 87088; 87186; 92610; 93005; 93306; 94760; 94761; 96374; 97116; 97161; 99285; G0378; J1335

== ENCOUNTER 2021-02-08 08:49 | Day surgery (SDC) | payer MEDICARE, MEDICAID, SELFPAY ==
[2021-02-03 09:30] VITALS: BMI 48.8
[2021-02-08 09:32] LABS: Coronavirus 19, PCR Not Detected (NotDetected); Influenza A, PCR Not Detected (NotDetected); Influenza B, PCR Not Detected (NotDetected)
[2021-02-08 10:13] VITALS: BP 133/81; PULSE 59; RESP 18; TEMP 36.7; O2SAT 93
[2021-02-08 10:50] VITALS: BP 148/82; PULSE 61; RESP 18; TEMP 36.1; O2SAT 95
== END 2021-02-08 10:58 | disposition home or self-care (01) ==
PROVIDERS: PCP Nurse Practitioner Family; Visit Provider Ophthalmology
PROC: (CPT 66821; principal; 2021-02-08 09:00)
DX: H26.492 Other secondary cataract, left eye (principal); Z96.1 Presence of intraocular lens; I50.9 Heart failure, unspecified; E11.9 Type 2 diabetes mellitus without complications; Z88.6 Allergy status to analgesic agent; Z88.2 Allergy status to sulfonamides; Z79.899 Other long term (current) drug therapy
CPT/HCPCS: 66821; U0003